=== PATIENT | female | born 1970 | race Caucasian/White ===

== ENCOUNTER → 2017-07-03 13:08 | Outpatient (CLI) | payer OTHER, MEDICAID, SELFPAY | PROVIDERS: PCP Family Medicine; Visit Provider Internal Medicine | DX: G47.33 Obstructive sleep apnea (adult) (pediatric) (principal); G47.10 Hypersomnia, unspecified; E66.9 Obesity, unspecified | CPT/HCPCS: 95806 ==

== ENCOUNTER → 2017-08-20 07:35 | Outpatient (CLI) | payer OTHER, MEDICAID, SELFPAY ==
[2017-08-20 13:39] LABS: Basophils % 0.3 % (0.1-2.0); Eosinophils # 0.2 K/mm3 (0.0-0.4); Hematocrit 40.4 % (37.0-47.0); Hemoglobin 13.2 g/dL (12.2-16.2); Lymphocytes % 32.1 K/mm3 (10-50); Mean Corpuscular HGB Conc 32.7 g/dL (31.8-35.4); Mean Corpuscular Hemoglobin 30.5 pg (27.0-31.2); Mean Corpuscular Volume 93.2 fl (81-99); Mean Platelet Volume 8.3 fl (7.4-10.4); Monocytes # 0.3 K/mm3 (0.1-1.0); Monocytes % 5.4 % (1.7-9.3); Neutrophils # 3.7 K/mm3 (1.8-7.8); Neutrophils % 59.1 % (37.0-80.0); Platelet Count 222 K/mm3 (142-424); Red Blood Count 4.34 M/mm3 (4.20-5.40); Red Cell Distribution Width 13.4 % (11.5-17.5); White Blood Count 6.3 K/mm3 (4.8-10.8)
[2017-08-20 14:23] LABS: Alanine Aminotransferase 36 U/L (12-78); Albumin Level 3.4 gm/dL (3.4-5.0); Alkaline Phosphatase 66 U/L (46-116); Anion Gap 11.1 mEq/L (5-15); Aspartate Amino Transferase 22 U/L (15-37); Bilirubin,Total 0.5 mg/dL (0.2-1.0); Blood Urea Nitrogen 12 mg/dL (7-18); Calcium 8.9 mg/dL (8.5-10.1); Carbon Dioxide 25 mmol/L (21.0-32.0); Chloride 106 mmol/L (98-107); Creatinine,Serum 0.96 mg/dL (0.55-1.02); Estimated Glomerular Filt Rate 62 ml/min (>60); Ferritin 94 ng/mL (8-388); GFR (African American) 75 ML/MIN (>60); Globulin 3.4 gm/dl (1.3-3.2); Glucose 107 mg/dL (74-106); Potassium 4.1 mmoL/L (3.5-5.1); Sodium 138 mmol/L (136-145); Thyroid Stimulating Hormone 2.11 uIU/ml (0.358-3.740); Total Protein,Serum 6.8 gm/dL (6.4-8.2)
[2017-08-22 14:46] LABS: Vitamin B12 315 pg/mL (232-1245)
== END ==
PROVIDERS: PCP Family Medicine; Visit Provider Specialist
DX: G47.33 Obstructive sleep apnea (adult) (pediatric) (principal)
CPT/HCPCS: 36415; 80053; 82607; 82728; 84443; 85025

== ENCOUNTER → 2017-11-04 20:00 | Outpatient (CLI) | payer OTHER, MEDICAID, SELFPAY | PROVIDERS: PCP Family Medicine; Visit Provider Specialist | DX: G47.33 Obstructive sleep apnea (adult) (pediatric) (principal); G47.30 Sleep apnea, unspecified; G47.10 Hypersomnia, unspecified; G45.9 Transient cerebral ischemic attack, unspecified; G47.61 Periodic limb movement disorder | CPT/HCPCS: 95810 ==

== ENCOUNTER → 2018-07-17 07:57 | Outpatient (CLI) | payer OTHER, SELFPAY ==
--- NOTE | 2018-07-17 08:02 | MM_ITS ---
MM Dig screening mamm BI w/CAD CAD Screening COMPARISON: Analog mammograms 07/15/2009 INDICATION: There is a history of breast cancer patient maternal grandmother and maternal great-grandmother patient complains of a palpable area right breast for several months TECHNIQUE: Standard CC and MLO images were obtained. R2 CAD reviewed. FINDINGS: The breasts are composed primarily of fat with minimal scattered fibroglandular densities throughout each breast. The marker was placed on the skin at the site of the palpable lump and there is no underlying abnormality appreciated. There are couple of benign-appearing calcifications in each breast. There is a mole marker left breast. There is no suspicious lesion and there are no suspicious microcalcifications. If a palpable lump persists possibly follow-up ultrasound should be considered. IMPRESSION: Fibrofatty parenchyma with no suspicious lesion seen. BI-RADS Category: 2 Benign Finding(s) RECOMMENDED FOLLOW-UP: 1YR - 1 YEAR FOLLOW-UP (A letter has been sent to the patient regarding results of the study.)
--- NOTE | 2018-07-17 08:02 | US_ITS ---
US breast RT complete INDICATION: Reported palpable abnormality in the 2:00 region of the right breast ORDERING PHYSICIAN: Jose Murphy MD PATIENT AGE: 47 years COMPARISON: None TECHNIQUE: Right breast ultrasound complete with axilla FINDINGS: General survey is performed of the right breast showing no sonographic abnormalities. Small nodes are present in the axilla IMPRESSION: Negative BI-RADS Category: 1 Negative Correlation with physical exam required if there is indeed a palpable abnormality should be managed on a clinical basis. Negative ultrasound does not exclude the possibility of malignancy. Complete evaluation suggested with mammography (A letter has been sent to the patient regarding results of the study.)
== END ==
PROVIDERS: PCP Family Medicine; Visit Provider Family Medicine
DX: Z12.31 Encounter for screening mammogram for malignant neoplasm of breast (principal)
CPT/HCPCS: 76641; 77067

== ENCOUNTER → 2018-08-11 09:57 | Outpatient (POV) | payer OTHER, SELFPAY | PROVIDERS: Visit Provider Specialist | DX: R20.2 Paresthesia of skin (principal) ==

== ENCOUNTER → 2018-12-08 08:49 | Outpatient (POV) | payer OTHER, MEDICAID, SELFPAY | PROVIDERS: Visit Provider Specialist | DX: R20.0 Anesthesia of skin (principal) | CPT/HCPCS: 95886; 95910 ==

== ENCOUNTER → 2019-02-10 12:18 | Outpatient (CLI) | payer OTHER, SELFPAY ==
--- NOTE | 2019-02-10 12:29 | CA_ITS ---
[facility] RADIOLOGICAL CONSULTATION Patient Name : Valerie Berger X-RAY # : [id number] Physician: EJ PALUMBO AGE: 48Y : 1970 00:00:00 ( F ) Exam : CA ECHO DOPPLER COMPLETE ACC # : [id number] Study Date : 02/10/2019 12:26:54 Patient Class : O FINAL REPORT CLINICAL DATA: FINDINGS: TRANSCRIBED REPORT EXAM: Comprehensive 2D, Doppler, and color-flow Echocardiogram Ht: 5 ft 3 in Wt: 262lbs BSA: 2.17 BP: 108/58 mmHg Indications: CP, smoker, fatigue, SOB, PASCUAL, Hyperlipidemia, HHD, AICD, hx of VT 2D Dimensions Aortic Root 2.70 cm F: 2.7 - 3.3 Left Atrium 3.80 cm F: 2.7 - 3.8 M-Mode Dimensions RVDd 1.37 cm (0.9-2.6) LVDd 4.31 cm (3.5-5.7) LVDs 3.20 cm (3.5-5.7) IVSd 1.14 cm (0.6-1.1) PWd 0.95 cm (0.6-1.1) EF (Teich) 50.90% FS 25.80% EDV (Teich) 83.50 mL ESV (Teich) 41.00 mL LV Diastology E/A Ratio 1.24 Mitral Valve MV A Velocity 70.00 (40-130 cm/s) Electronically signed by : IMPRESSION: Dictated by at Transcribed by at
[2019-02-10 14:09] LABS: Anion Gap 14.3 mEq/L (5-15); Blood Urea Nitrogen 16 mg/dL (7-18); Carbon Dioxide 28 mmol/L (21.0-32.0); Chloride 103 mmol/L (98-107); Creatinine,Serum 1.03 mg/dL (0.55-1.02); Estimated Glomerular Filt Rate 57 ml/min (>60); GFR (African American) 69 ML/MIN (>60); Glucose 96 mg/dL (74-106); Potassium 4.3 mmoL/L (3.5-5.1); Sodium 141 mmol/L (136-145)
== END ==
PROVIDERS: PCP Family Medicine; Visit Provider Internal Medicine Cardiovascular Disease
DX: R06.00 Dyspnea, unspecified (principal); I50.20 Unspecified systolic (congestive) heart failure; R42 Dizziness and giddiness; E78.5 Hyperlipidemia, unspecified; G25.81 Restless legs syndrome; I11.0 Hypertensive heart disease with heart failure; I20.9 Angina pectoris, unspecified; I42.9 Cardiomyopathy, unspecified; Z95.810 Presence of automatic (implantable) cardiac defibrillator; R20.0 Anesthesia of skin
CPT/HCPCS: 36415; 80048; 83880; 93306

== ENCOUNTER → 2021-12-13 09:46 | Outpatient (CLI) | payer BC, SELFPAY ==
--- NOTE | 2021-12-13 09:52 | MM_ITS ---
PROCEDURE INFORMATION: Exam: MG Bilateral Screening 3D Mammography Exam date and time: 12/13/2021 9:46 AM Age: 51 years old Clinical indication: Screening examination. Her maternal grandmother and great great grandmother had breast cancer. TECHNIQUE: Imaging protocol: Bilateral Screening tomosynthesis and 2D mammography including computer-aided detection (CAD) when performed. COMPARISON: 1. MG SCBI MM Dig screening mamm BI w/CAD 07/17/2018 8:41 AM 2. MG MM Digitiz Mammo Leadite Worker 07/15/2009 3:50 PM 3. BREASTRT US breast RT complete 07/17/2018 8:44 AM FINDINGS: MAMMOGRAPHY: Breast composition: The breasts are almost entirely fatty. Mass: No suspicious mass. Architectural distortion: None. Calcifications: No suspicious calcifications. Asymmetric density: None. Skin thickening: None. Axillary adenopathy: None. Other findings: Metallic pacemaker overlying the left axilla limits evaluation and accentuates the importance of clinical breast exam. IMPRESSION: No mammographic evidence of malignancy. Annual screening is recommended unless otherwise clinically indicated. ASSESSMENT: BI-RADS Category 1: Negative
== END ==
PROVIDERS: PCP Internal Medicine; Visit Provider Family Medicine
DX: Z12.31 Encounter for screening mammogram for malignant neoplasm of breast (principal)
CPT/HCPCS: 77063; 77067

== ENCOUNTER 2023-01-24 09:44 | Day surgery (SDC) | payer OTHER, SELFPAY ==
--- NOTE | 2023-01-24 | IR_ITS ---
APPROVED REPORT Patient Location: Outpatient [facility] Blind Mechanic: SAMMIE Finn RT (R) PROCEDURES Pocket Revision Removal of old cardiac resyncronization therapy device Implant of Permanent cardiac resyncronization therapy device INDICATION End of Battery Life Informed consent was obtained prior to the procedure. COMPLICATIONS None Estimated Blood Loss: Less than 10 ml TECHNIQUE 1% lidocaine with epinephrine used to anesthetize the left anterior aspect of the chest. Scalpel was used to make the initial cutaneous incision and then used to dissect down to the existing SLOT SHIFT SUPERVISOR-D generator. The generator was removed from the existing pocket. Digital manipulation was required along with intermittent usage of scalpel in order to revise the pocket. The leads were removed from the old generator. The new generator was screwed to the existing leads and secured into place. Electronic interrogation proved acceptable thresholds and voltage within the lead. Antibiotics were used to flush the pocket and the pacemaker was secured using 3-0 silk into the newly revised pocket. Monocryl was used to close the subcutaneous tissue and then stephan were placed on the cutaneous area in order to approximate the incision. Patient was transferred to the postop holding area in stable condition. INTERROGATION Explanted Generator Model Number: 3365/40q Explanted Generator Serial Number:[id number] Implanted Generator Model number: [id number] Implanted Generator Serial number: [id number] Atrial lead model number: 1688tc/52 Atrial lead serial number: [id number] P wave: >0.5 mv Impedence: n/a Threshold: 0.6V@0.5 ms Right Ventricular lead model number: [id number] Right Ventricular lead serial number: UNKNOWN R wave: 11.7 mv Impedence: 700 ohms Threshold: 0.5v@0.5,d Left Ventricular lead Model Number: 1458q/86 Left Ventricular Lead serial Number: [id number] R wave: N/A Impedence: 900 ohms Threshold: 1.5v @ 1.0ms Pacing Parameters: Mode: DDDR Base/Max Track:60 ppm / 130 ppm No diaphragmatic stimulation at 10 volts. IMPRESSION Successful Pocket Revision Successful Removal of old cardiac resyncronization therapy device Successful Implant of Permanent cardiac resyncronization therapy device PLAN 1. Post Op Wound Care Electronically signed by : John Henriquez MD 01/25/2023 09:34:00
[2023-01-24 07:45] VITALS: BMI 46.0
[2023-01-24 10:41] LABS: Basophils % 0.6 % (0.1-2.0); Eosinophils # 0.1 K/mm3 (0.0-0.4); Eosinophils % 1.7 % (0.1-12.0); Hematocrit 42.5 % (37.0-47.0); Hemoglobin 13.9 g/dL (12.2-16.2); Lymphocytes # 2.1 K/mm3 (0.7-4.5); Lymphocytes % 36.9 % (10-50); Mean Corpuscular HGB Conc 32.7 g/dL (31.8-35.4); Mean Corpuscular Volume 91.7 fl (81-99); Mean Platelet Volume 9.2 fl (7.4-10.4); Monocytes # 0.4 K/mm3 (0.1-1.0); Monocytes % 6.4 % (1.7-9.3); Neutrophils # 3.1 K/mm3 (1.8-7.8); Neutrophils % 54.4 % (37.0-80.0); Platelet Count 201 K/mm3 (142-424); Red Blood Count 4.63 M/mm3 (4.20-5.40); Red Cell Distribution Width 14.2 % (11.5-17.5); White Blood Count 5.7 K/mm3 (4.8-10.8)
[2023-01-24 10:51] LABS: Anion Gap 11.5 mEq/L (5-15); Blood Urea Nitrogen 9 mg/dl (7-17); Calcium 9.4 mg/dl (8.4-10.2); Carbon Dioxide 32 mmol/L (22.0-30.0); Chloride 103 mmol/L (98-107); Creatinine Clearance Estimated 53 mL/min (50-200); Estimated Glomerular Filt Rate 58 ml/min (>60); GFR (African American) 70 ML/MIN (>60); Glucose 121 mg/dl (74-100); Potassium 3.5 mmoL/L (3.5-5.1); Sodium 143 mmol/L (136-145)
[2023-01-24 14:45] VITALS: BP 116/96; PULSE 83; RESP 20; O2SAT 90
[2023-01-24 14:50] VITALS: BP 120/95; PULSE 75; RESP 16; O2SAT 90
[2023-01-24 15:00] VITALS: BP 147/98; PULSE 80; PULSE 89; RESP 20; O2SAT 94
[2023-01-24 15:03] VITALS: BP 147/98; PULSE 85; RESP 18; O2SAT 95
[2023-01-24 15:10] VITALS: BP 110/73; PULSE 85; RESP 20; O2SAT 94
[2023-01-24 15:32] VITALS: BP 117/65; PULSE 80; RESP 20; O2SAT 96
== END 2023-01-24 16:00 | disposition home or self-care (01) ==
PROVIDERS: PCP Family Medicine; Visit Provider Internal Medicine
DX: Z45.02 Encounter for adjustment and management of automatic implantable cardiac defibrillator (principal); Z79.899 Other long term (current) drug therapy; F17.210 Nicotine dependence, cigarettes, uncomplicated; I42.9 Cardiomyopathy, unspecified; E78.5 Hyperlipidemia, unspecified; I11.0 Hypertensive heart disease with heart failure; I50.22 Chronic systolic (congestive) heart failure; G25.81 Restless legs syndrome
CPT/HCPCS: 33264; 36415; 80048; 85025; 99152; C1882

== ENCOUNTER → 2023-02-06 09:03 | Outpatient (CLI) | payer OTHER, SELFPAY ==
--- NOTE | 2023-02-06 | CA_ITS ---
APPROVED REPORT EXAM: Comprehensive 2D, Doppler, and color-flow Echocardiogram Financial Sales Associate: Jamee Garay, RCS, RVS Ht: 5 ft 3 in Wt: 259lbs BSA: 2.16 BP: 146/81 mmHg Indications: s/p PACER, SOA, OBESITY, CP, HTN, HLD,Ex-smoker 2D Dimensions IVSd 0.93 cm LVEF (Visual) 70.40 % PWd 1.02 cm LA Volume 38.10 mL LVDd 4.67 cm LA Volume Index 17.955659 mL/m2 (M/F) 16-34 LVDs 2.81 cm Aortic Root 2.45 cm Left Atrium 2.68 cm LVOT 1.76 cm (M/F) 1.5-2.5 M-Mode Dimensions LA Diam 3.27 cm (1.9-4.0) LVDd 4.68 cm (3.5-5.7) Ao Diam 2.98 cm (2.0-3.7) LVDs 3.43 cm (3.5-5.7) EF (Teich) 52.10% EPSs 0.57 cm FS 26.70% EDV (Teich) 101.30 mL TAPSE 1.90 (<1.7) ESV (Teich) 48.50 mL LV Diastology E Decel Time 223.00 (160-240 msec) E/A Ratio 1.08 MED E' 6.20 (< 7 cm/sec) MED A' 7.80 cm/s E'/MED E' Ratio 11.84 (>14) LAT E' 6.50 (<10 cm/sec) LAT A' 5.00 cm/s E/LAT E' Ratio 11.29 (>14) Aortic Valve LVOT Max 96.00 (70-110 cm/s) LVOT VTI 20.65 cm AoV Peak Shashank. 153.00 (50-130 cm/s) AO Peak GR. 9.30 mmHg AO Mean GR. 4.70 (<5 mmHg) AO VTI 31.49 (18-25 cm) ANDREW (VTI) 1.60 (2.5-4.5 cm2) Mitral Valve MV A Velocity 68.00 (40-130 cm/s) E/A Ratio 1.08 MV Decel. Time 223.00 (160-240 ms) Pulmonary Valve PV Peak Velocity 78.00 (50-150 cm/s) Left Ventricle The left ventricle is normal size. The left ventricular systolic function is normal. The left ventricular ejection fraction is within the normal range. There is increased LV wall thickness. There is normal LV segmental wall motion. The left ventricular diastolic function is normal. LVEF is 55%. Right Ventricle The right ventricle is mildly dilated. The right ventricular systolic function is normal. Atria The left atrium size is normal. The right atrium size is normal. The interatrial septum is not well visualized. Aortic Valve The aortic valve is not well visualized, but grossly opens well. There is no aortic valvular stenosis. No aortic regurgitation is present. Mitral Valve The mitral valve is normal in structure. No evidence of mitral valve stenosis. Trace mitral regurgitation. Tricuspid Valve The tricuspid valve leaflets are thin and pliable. Trace tricuspid regurgitation. There is insufficient TR jet to estimate RVSP. Pulmonic Valve The pulmonary valve is not well visualized. Great Vessels The aortic root is normal in size. The ascending aorta is normal in size. The IVC is not well visualized. Pericardium There is no pericardial effusion. Other Information Study Quality: Technically Difficult Conclusion Technically difficult study due to poor accoustic windows. Grossly, normal biventricular systolic function. Mildly dilated RV. No significant valvular stenosis or regurgitation of the visualized valves. Electronically signed by : Dinora Oneal MD 02/09/2023 13:37:16
== END ==
PROVIDERS: PCP Family Medicine; Visit Provider Nurse Practitioner
DX: R06.02 Shortness of breath (principal)
CPT/HCPCS: 93306

== ENCOUNTER 2024-08-27 09:07 | Outpatient (CLI) | payer BC, SELFPAY ==
--- NOTE | 2024-08-27 09:11 | CA_ITS ---
APPROVED REPORT EXAM: Comprehensive 2D, Doppler, and color-flow Echocardiogram Educational Technology Specialist: Kalpana Oliveira RVT Ht: 5 ft 3 in Wt: 268lbs BSA: 2.19 BP: 121/68 mmHg Indications: DYSPENA,AICD,HFpEF,HTN.HLD,FATIGUE TDS-PT BODY HABITUS 2D Dimensions IVSd 1.55 cm F: 0.6-1.0 LVEF (Visual) 51.50 % PWd 0.80 cm F: 0.6 - 1.0 LA Volume 22.80 mL LVDd 2.70 cm F: 3.9 - 5.3 LA Volume Index 10.41 mL/m2 (M/F) 16-34 LVDs 2.02 cm F: 2.2 - 3.5 EF AP4 53.20 % Aortic Root 2.03 cm F: 2.7 - 3.3 GL Strain -5.3 % Left Atrium 3.16 cm F: 2.7 - 3.8 RVID Base (AP4) 2.44 cm (M/F) 2.5-4.1 LVOT 2.42 cm (M/F) 1.5-2.5 M-Mode Dimensions LVDd 2.70 cm (3.5-5.7) Ao Diam 2.57 cm (2.0-3.7) LVDs 2.02 cm (3.5-5.7) IVSd 1.55 cm (0.6-1.1) PWd 0.80 cm (0.6-1.1) FS 25.20% LV Diastology E Decel Time 225 (160-240 msec) E/A Ratio 1.0 MED E' 5.2 (>= 7 cm/sec) E'/MED E' Ratio 12.12 (<= 14) LAT E' 4.3 (>= 10 cm/sec) E/LAT E' Ratio 14.65 (<= 14) Aortic Valve LVOT Max 73.0 (70-110 cm/s) ANDREW Index 1.02 cm2/m2 LVOT VTI 11.75 cm AoV Peak Shashank. 131.0 (50-130 cm/s) AO Peak GR. 6.40 mmHg AO Mean GR. 3.50 (<5 mmHg) AO VTI 24.1 (18-25 cm) ANDREW (VTI) 2.24 (2.5-4.5 cm2) Mitral Valve MV E Max Shashank. 63.0 (40-130 cm/s) MV A Velocity 60.0 (40-130 cm/s) E/A Ratio 1.05 MV Decel. Time 225 (160-240 ms) Left Ventricle The left ventricle is normal size. The left ventricular systolic function is normal. The left ventricular ejection fraction is within the normal range. There is increased overall thickness. Diastolic function is indeterminate. There is normal LV segmental wall motion. LVEF is 55%. Right Ventricle In the right ventricle is not well-visualized. Atria The left atrium size is normal. The right atrium is not well-visualized. Aortic Valve Aortic valve is mildly thickened. There is no aortic valvular stenosis. No aortic regurgitation is present. Mitral Valve The mitral valve is normal in structure. No evidence of mitral valve stenosis. Trace mitral regurgitation. Tricuspid Valve The tricuspid valve is not well-visualized. Pulmonic Valve The pulmonic valve is not well-visualized. Great Vessels The aortic root is normal in size. The IVC is not well-visualized. Pericardium There is no pericardial effusion. Other Information Study Quality: Technically Difficult Conclusion Technically difficult study due to poor acoustic windows. Normal LV systolic function. RV not well-visualized. No significant valvular stenosis or regurgitation in the AV or MV. The TV and PV are not well-visualized. Electronically signed by : Dinora Oneal MD 09/05/2024 00:10:17
== END 2024-08-27 23:59 | disposition home or self-care (01) ==
LOC: RT 09:08
PROVIDERS: PCP Family Medicine; Visit Provider Nurse Practitioner
DX: I42.9 Cardiomyopathy, unspecified (principal); I11.0 Hypertensive heart disease with heart failure; I50.22 Chronic systolic (congestive) heart failure
CPT/HCPCS: 93306

== ENCOUNTER 2024-12-15 08:54 | Outpatient (CLI) | payer BC, SELFPAY ==
--- OUTSIDE RECORDS SUMMARY | 2023-12-11 05:30 | XMS_ITS ---
Author Organization [facility] Address [address] [facility] [id number] Care Team Providers Care Tobacco Acreage Measurer Name Role Phone Katherine García Primary Care Provider [phone] GARCÍA MURPHY Unavailable Unavailable Allergies Allergen (clinical [...] Interpretation:324 Performing Lab: Notes/Report: Test performed by [facility], [employer] [address] [place] [address] , [address], [place] [address] Zaid Olvera MD, Family Practice Nurse Practitioner CLIA: [id number] Vitamin B12 411 996-0880 pg/mL P-Lipid Panel Reviewed date:12/12/2023 08:26:50 AM Interpretation: Normal Performing Lab: Notes/Report: Test performed by [facility], [address] [place], [place] [address] Zaid Olvera MD, Family Practice Nurse Practitioner CLIA: [id number] Cholesterol 150 <200 mg/dL Triglycerides 136 <150 [...] Normal Performing Lab: Notes/Report: Test performed by [facility] [employer], [employer] [address] [facility] , [address], [place] [address] Zaid Olvera MD, Family Practice Nurse Practitioner CLIA: [id number] Vitamin D 25-Hydroxy 58.9 30.0-100.0 ng/mL Interpretation [...] Date Status Vitamin D (Ergocalciferol) 1.25 MG (49017 UT) TAKE 1 CAPSULE BY MOUTH 1 [...] 12/11/2023 Encounters Encounter Location Date Provider Diagnosis [facility] [address] [place], [place] [id number] 12/11/2023 García [place] Essential hypertensi on I10 ; Hypertriglyceridemia E78.1 [...] 06/11/2025 10:15:00 AM, [address] [facility], [address] , [place], [place], [id number], Progress Notes * XIMENA FERNANDEZDOB:[birth year] (54 yo F)Acc No.[id number]:12/11/2023 Progress Notes Patient: XIMENA SCOTT Provider: Jluis Murphy M.D. :1970 A ge:53 Y S ex:Female Date:12/11/2023 Address:[address] [place] [address], [place], [id number] Subjective: * Chief Complaints: * 1 . [...] stic Procedure: S leep Study , Rash- [facility] 01/09-, [facility] ER-reaction to Excedrin- [facility] ER 02/06/2009, [facility] [place] 05/07/2014, ICD 05/12/2015. * Family History: F [...] , Taking Vitamin D (Ergocalciferol) 1.25 MG (24484 UT) Capsule TAKE 1 CAPSULE BY MOUTH [...] AM)?324* Value Reference Range V itamin B12 364 794-4602 - pg/mL * Kassidy Olivarez 12/12/2023 8:26: [...] * Procedure Codes: 8 2950 GLUCOSE TEST, 31141 GLYCATED HEMOGLOBIN TEST, Modifiers: QW * Follow Up: 6 Months * Images: Billing Information: * Visit Code: 11127 Office Visit, Est Pt., Level 4. * Procedure Codes: 17063 GLUCOSE TEST. 02366 GLYCATED HEMOGLOBIN TEST. Modifiers: QW * Electronic signature of Shasta Murphy MD on 12/15/2024 at 08:58 AM EDT Sign off status: Pending * Provider: Jluis Murphy M.D. Date: 12/11/2023 Generated for Omar oliver/Jelena/eTransmitting on: 0 12/15/2024 08:58 AM EDT History and Physical Notes * HPI (History [...]
--- OUTSIDE RECORDS SUMMARY | 2024-06-10 05:45 | XMS_ITS ---
Author Organization [facility] Address [address] [phone] Care Team Providers Care Conveyor Attendant Name Role Phone Katherine García Primary Care [...] Interpretation:281 Performing Lab: Notes/Report: Test performed by [facility], [employer] [address] [place] [address] , [address], [place] [address] Zaid Olvera MD, Transportation Sales Consultant CLIA: [id number] Vitamin B12 812 320-3476 pg/mL P-Comprehensive Metabolic Pa francia (CMP) Reviewed date:06/12/2024 09:28:26 AM Interpretation:gluc 101, Cr 1.13, gfr 57 Performing Lab: Notes/Report: Test performed by [employer] [employer] [address] [place] [address] , [address], [place] [address] Zaid Olvera MD, Transportation Sales Consultant CLIA: [id number] Sodium 141 135-145 mmol/L Potassium 4.2 3.5-5.3 [...] Normal Performing Lab: Notes/Report: Test performed by [employer] [address] [place] [address] , [address], [place] [address] Zaid Olvera MD, Transportation Sales Consultant CLIA: [id number] Cholesterol 159 <200 mg/dL Triglycerides 126 <150 [...] Interpretation:32.9 Performing Lab: Notes/Report: Test performed by [facility], [address] , [place], [place] [address] Zaid Olvera MD, Transportation Sales Consultant CLIA: [id number] Vitamin D 25-Hydroxy 32.9 30.0-100.0 ng/mL Interpretation [...] day Active Vitamin D (Ergocalciferol) 1.25 MG (16841 UT) TAKE 1 CAPSULE BY MOUTH 1 [...] 06/10/2024 Encounters Encounter Location Date Provider Diagnosis [facility] [facility] [address] [phone] 06/10/2024 García Murphy Essential hypertensi on I10 [...] [address], [address], [place], [place], [id number], Progress Notes * XIMENA BERGERDOB:[birth year] (54 yo F)Acc No.[id number]:06/10/2024 Progress Notes Patient: XIMENA SCOTT Provider: Jluis Murphy M.D. :1970 A ge:53 Y S ex:Female Date:06/10/2024 Address:[address] [place] [address], [place], [id number] Subjective: * Chief Complaints: * 1 . [...] stic Procedure: S leep Study , Rash- [facility] 01/09-, [facility] ER-reaction to Excedrin- [facility] ER 02/06/2009[facility], ICD 05/12/2015. * Family History: F [...] , Taking Vitamin D (Ergocalciferol) 1.25 MG (85966 UT) Capsule TAKE 1 CAPSULE BY MOUTH [...] AM)?281* Value Reference Range V itamin B12 968 728-4391 - pg/mL * Kassidy Olivarez 06/12/2024 9:28: 15 AM >See phone encounter 7.?Depression with anxiety? Refill Escitalopram Oxalate Tablet, 10 MG, 1 tab(s), orally, once a day, 90 days, 90, Refills 1; Refill ARIPiprazole Tablet, 5 MG, 1 tab(s), orally, once a day, 90 days, 90, Refills 1.? * Procedure Codes: 8 2950 GLUCOSE TEST, 413[address] GLYCATED HEMOGLOBIN TEST, Modifiers: QW , 3074F SYST BP LT 130 MM HG, 3078F DIAST BP < 80 MM HG, 3044F HG A1C LEVEL LT 7.0% * Follow Up: 6 Months * Images: Billing Information: * Visit Code: 66156 Office Visit, Est Pt., Level 4. * Procedure Codes: 32356 GLUCOSE TEST. 59641 GLYCATED HEMOGLOBIN TEST. Modifiers: QW 3074F SYST BP LT 130 MM HG. 3078F DIAST BP < 80 MM HG. 3044F HG A1C LEVEL LT 7.0%. * Electronic signature of Shasta Murphy MD on 12/15/2024 at 08:57 AM EDT Sign off status: Pending * Provider: Jluis Murphy M.D. Date: 0 06/10/2024 Generated for Printi ng/Faxing/eTransmitting on: 0 12/15/2024 08:57 AM EDT History and Physical Notes * HPI (History of Present Illness) Category Sub-Category Detail Notes Category Not es [facility]ocrinology [facility]. [...]
--- OUTSIDE RECORDS SUMMARY | 2024-12-09 05:45 | XMS_ITS ---
Author Organization [facility] Address [address] [facility] [address] [phone] Care Team Providers Care Filler Shredding Machine Loader Name Role Phone García Murphy Primary Care Provider GARCÍA MURPHY Unavailable Unavailable [...] Active Results Component Value Reference Range Notes P-Vitamin B12 (Not yet revie wed by provider) Interpretation:363 Performing Lab: Notes/Report: Test performed by [facility] [employer] [place] , [address], [place] [address] Zaid Olvera MD, Institutional Cook CLIA: [id number] Vitamin B12 326 458-4411 pg/mL P-Basic Metabolic Panel (BMP ) (Not yet reviewed by provider) Interpretation:gluc 113 Performing Lab: Notes/Report: Test performed by [facility] [employer] [address], [address], [place] [address] Zaid Olvera MD, Institutional Cook CLIA: [id number] Sodium 143 135-145 mmol/L Potassium 4.0 3.5-5.3 mmol/L Chloride 104 97-108 mmol/L CO2 26 20-32 mmol/L Glucose 113 65-99 mg/dL BUN 10 6-20 mg/dL Creatinine 0.94 0.50-1.00 mg/dL Calcium 9.1 8.6-10.4 mg/dL eGFR by Creatinine 71 >59 mL/min/1.73m2 P-Vitamin D 25-Hydroxy (Not yet reviewed by provider) Interpretation:34.5 Performing Lab: Notes/Report: Test performed by [employer], [address] , [address], [place] [address] Zaid Olvera MD, Institutional Cook CLIA: [id number] Vitamin D 25-Hydroxy 34.5 30.0-100.0 ng/mL Interpretation of Vitamin D 25 OH: < 20 ng/mL - Deficiency 20 - 29 ng/mL - Insufficiency 30 - 100 ng/mL - Sufficiency > 100 ng/mL - Super-therapeutic- toxicity may occur above this level. Clinical correlation required. Intrinsic Factor Blocking An tibody (Not yet reviewed by provider) Interpretation: Normal Performing Lab: Notes/Report: Intrinsic Factor Blocking Antibody Negative Negative Performed By: [employer] [address] [place] [address] Institutional Cook: Jamar Ortiz MD, PhD CLIA Number: [id number] Glucose (In-House) Reviewed date:12/09/2024 11:00:09 AM Interpretation: Performing Lab: Notes/Report: blood glucose 132 74 - 106 mg/dL Glycohemoglobin A1c (in hous e) Reviewed date:12/09/2024 10:59:59 AM Interpretation: Performing Lab: Notes/Report: glycohemoglobin 5.8% 5 - 6.5 % REASON FOR VISIT 6 month checkup Medications [...] B-12 1000 MCG 1 tablet Orally On a day 06/16/2024 Active Furosemide 40 MG [...] Problem Status W/U Status Risk Notes Problem IFG (impaired fasting glucose) (R73.01) Active confirmed Vital Signs Blood pressure systolic 112 mm Hg 12/10/19 Blood pressure diastolic 70 mm Hg 025 Heart Rate 64 /min 12/09/2024 Height 63 in 12/09/2024 Weight 272.8 lbs 12/09/2024 BMI 48.32 kg/m2 12/09/2024 Encounters Encounter Location Date Provider Diagnosis [facility] [address] [facility] [address] [place], [place] [id number] 12/09/2024 García [place] Essential hypertensi on I10 ; Vitamin D [...] test Pending Test Test Name Order Date P-Vitamin B12 12/09/2024 P-Basic Metabolic Panel (BMP) 12/09/2024 P-Vitamin D 25-Hydroxy 12/09/2024 P-Intrinsic Factor Blocking Antibody Intrinsic Factor Blocking Antibody 12/09 Next Appt Details Follow Up: 6 Months, Reason: Provider Name:García Ling ry, 06/11/2025 10:15:00 AM, [address], [address], [place], [place], [phone], Procedure Notes * Category Sub-Category Detail Notes Irrigation Of Ears Procedure Ear prepped b y soaking with H2O2, Flushed with peroxide and warm water, Ears irrigated free of only some of the wax. Patient wanted to stop due to discomfort Progress Notes * IVONE BERGERANNALISADOB:[birth year] (54 yo F)Acc No.[id number]:12/09/2024 Progress Notes Patient: XIMENA SCOTT Provider: Jluis Murphy M.D. :1970 A ge:54 Y S ex:Female Date:12/09/2024 Address:[address] [place] [address], [id number] Subjective: * Chief Complaints: * 1 . [...] stic Procedure: S leep Study , Rash- [facility] 01/09-, [facility] ER-reaction to Excedrin- [facility] 02/06/2009, [facility] [place] 05/07/2014, ICD 05/12/2015. * Family History: F [...] Temp: 97.7, BP: 112/70, HR: 64, Nurse: kk, Ht: 63, BMI:48.32. * Examination: C ardiology: HEENT: b oth ear canals obstructed by dried cerumen. H eart sounds: R RR, normal S1, S2. L ungs: c lear, no rales or wheezes. E xtremities:?no leg edema. P sychology: General Appearance: N AD. G rooming : a dequate.?Eye contact : raj orvictor manuel. M ood : carlene lecandy. Assessment: * Assessment: 1. E ssential hypertension [...] GFR by Creatinine 71 >59 - mL/min/1.73m2 2.?Vitamin D deficiency? Continue Vitamin D3 Capsule, 50 MCG (2000 UT), 2 capsules, Orally, Once a day.?LAB: P-Vitamin D 25-Hydroxy (Collection Date & Time - 12/09/2024 09:05 AM)? 34.5* Value Reference Range V itamin D 25-Hydroxy 34.5 30.0-100.0 - ng/mL 3.?Vitamin B12 deficiency? Continue Vitamin B-12 Tablet, 1000 MCG, 1 tablet, Orally, Once a day.?LAB: P-Intrinsic Factor Blocking Antibody ?LAB: P-Vitamin B12 (Collection Date & Time - 12/09/2024 09:05 AM)?363* Value Reference Range V itamin B12 743 846-0140 - pg/mL 4.?IFG (impaired fasting glucose)?LAB: Glucose (In-House) (Collection Date & Time - 12/09/2024)* Value Reference Range b lood glucose 132 74 - 106 mg/dL * Katharina Tripathiira 12/09/2024 10:56: 53 AM EDT > Provider reviewed results while patient in office. ?LAB: Glycohemoglobin A1c (in house) (Collection Date & Time - 12/09/2024)* Value Reference Range g lycohemoglobin 5.8% 5 - 6.5 % * Katharina Tripathiira 12/09/2024 10:57: 22 AM EDT > Provider [...] Blocking Antibody Negative Negati ve - * [facility], IT support 12/11/2024 03:15:06 : This order was created by the Interface. * Procedure Codes: 6 9210 EAR IRRIGATION, [address] GLUCOSE TEST, 05383 GLYCATED HEMOGLOBIN TEST, Modifiers: QW * Follow Up: 6 Months * Images: Billing Information: * Visit Code: 68951 Office Visit, Est Pt., Level 4. Modifiers: 25 * Procedure Codes: 77872 EAR IRRIGATION. 59040 GLUCOSE TEST. 56725 GLYCATED HEMOGLOBIN TEST. Modifiers: QW * Electronic signature of Shasta Murphy MD on 12/15/2024 at 08:57 AM EDT Sign off status: Pending * Provider: Jluis Murphy M.D. Date: 0 12/09/2024 Generated for Omar oliver/Jelena/Rubina on: 0 12/15/2024 08:57 AM EDT History [...]
--- NOTE | 2024-12-15 08:56 | XR_ITS ---
FINAL REPORT CLINICAL HISTORY: sob x 2 months FINDINGS: PA and lateral views of the chest are obtained. There is no prior exam for comparison. Left AICD is present. The cardiac and mediastinal silhouettes are within normal limits. The lungs are clear. There is no pleural effusion, pneumothorax, or acute osseous abnormality. IMPRESSION: No radiographic evidence of acute cardiac or pulmonary disease. Reviewed, Interpreted and Dictated by Abbey Herron MD Transcribed by Gabbie Vance Authenticated and [facility]
--- OUTSIDE RECORDS SUMMARY | 2024-12-15 08:58 | XMS_ITS | Encounter Summary ---
Author Organization [place] [address] Care Team Providers Care Scheme Technician Name Role Phone Alexys Arguelles MD Primary Care Provider [phone] Encounter Details Date Type Department Care Team (Late st Contact Info) Description 05/07/2014 Orders Only SEP Arrhythmia Ctr Edg [address] [facility] [address] [place] [address] Branden Vora MD [address] [place], [place] [id number] Social History Tobacco Use Types Packs/Day Years Used Date Smoking Tobacco: Every Day Cigarettes 1 19.6 Started: 05/06/2005 Smokeless Tobacco: Never Alcohol Use Standard Drinks/Week Comments No 0 (1 standard drink = 0.6 oz pur e alcohol) Comments No Sex and Gender Information Value Date Recorded Sex Assigned at Not on file Legal Sex Female 4:42 PM EST Gender Identity Not on file Sexual Orientation Not on file documented as of this encounter Functional Status * Cognitive and Functional Status Question Answer Date of Assessment Author Is the person deaf or does he/she have serious difficulty hearing? No 05/08/2014 11:53 AM Grace Mccallum RN Is the person blind or does he/she have serious difficulty seeing even when wearing glasses? No 05/08/2014 11:53 AM Grace Mccallum RN Does this person have sercatau s difficulty walking or climbing stairs? No 05/08/2014 11:53 AM Grace Mccallum RN Does this person have difficulty dressing or bathing? No 05/08/2014 11:53 AM Aixa Andrews, BLUE documented as of this encounter Mental Status * Cognitive and Functional Status Question Answer Entry Date Author Because of a physical, menta l or emotional condition, does this person have difficulty doing errands alone such as visiting a doctor's office or shopping? No 05/08/2014 11:53 AM Grace Mccallum, RN Because of a physical, menta l or emotional condition, does this person have serious difficulty concentrating, remembering or making decisions? No 05/08/2014 11:53 AM Grace Mccallum, RN documented in this encounter Plan of Treatment Not on file documented as of this encounter Procedures Procedure Name Priority Date/Time Associated Diagnosis Comments PACEART REPORT Routine 05/07/2014 10:27 PM EST documented in this encounter Results * PACEART REPORT (05/07/2014 10:27 PM EST) 05/07/2014 10:2 7 PM EST Narrative [facility] - 05/07/2014 5:28 PM EST Implant us Branden Vora MD [facility] CARDIAC CATH ORDERAB LES Final Result Performing Organization Address City/State/[facility] Co de Phone Number [facility] [address] [place] [address] documented in this encounter Visit Diagnoses Not on filedocumented in this encounter Care Teams Scheme Technician Relationship Specialty Start Date End Date Alexys Arguelles MD [facility] [address] [place] [address] PCP - General Family Medicine 05/07/14 documented as of this encounter
--- OUTSIDE RECORDS SUMMARY | 2024-12-15 08:58 | XMS_ITS | Clinical Summary ---
Author Organization [facility] Address [address] [place] [address] Phone Care Team Providers Care Clerk General Name Role Phone Alexys Arguelles MD Primary Care Provider [phone] Allergies Active Allergy Reactions Criticality Noted Date Comments Aspirin Anaphylaxis High 05/06/2014 Erythromycin Rash Medium 05/06/2014 Excedrin Ib Anaphylaxis High 05/06/2014 Lisinopril Anaphylaxis,Swelling High 05/06/2014 Macrolide Antibiotics Rash Medium 05/06/2014 Peanut Anaphylaxis High 05/06/2014 Pomegranate Hives,Swelling,Rash Medium 05/06/2014 Medications losartan (COZAAR) 50 mg Oral Tablet Take 1 Tab by mouth daily. 30 Tab 2 05/08/2014 Active fUROsemide (LASIX) 40 mg Oral Tablet Take 1 Tab by mouth daily. 30 Tab 2 05/08/2014 Active carvedilol (COREG) 25 mg Oral TabletIndications: Automatic implantable cardiac defibrillator in situ,Fitting and adjustment of automatic implantable cardiac defibrillator,Familia estive heart failure, NYHA class II, unspecified failure chronicity, unspecified type (HCC) Take 50 mg by mouth 2 times daily. Active spironolactone (ALDACTONE) 25 mg Oral TabletIndications: Automatic implantable cardiac defibrillator in situ,Fitting and adjustment of automatic implantable cardiac defibrillator,Familia estive heart failure, NYHA class II, unspecified failure chronicity, unspecified type (HCC) Take 12.5 mg by mouth 2 times daily. Active warfarin (COUMADIN) 5 mg Oral TabletIndications: Automatic implantable cardiac defibrillator in situ,Fitting and adjustment of automatic implantable cardiac defibrillator,Familia estive heart failure, NYHA class II, unspecified failure chronicity, unspecified type (HCC) Take 5 mg by mouth every evening. Active Active Problems Problem Noted Date Diagnosed Date Syncope 05/07/2014 LV dysfunction 05/07/2014 LBBB (left bundle branch block) 05/07/2014 NICM (nonischemic cardiomyopathy) 05/07/2014 Cardiomyopathy Congestive heart failure, NYHA class II Biventricular ICD (implantab le cardioverter-defibrillator) in place Overview (05/10/2014): [employer] Biventricular ICD implanted by Dr. Katerin Vora on 05/07/2014 Nonsustained ventricular tachycardia CHF NYHA class II Surgical History Surgery Date Site/Laterality Comments HYSTERECTOMY TONSILLECTOMY SECTION BLADDER SURGERY CARDIAC DEFIBRILLATOR PLACEMENT 05/07/2014 SJM BiV ICD implanted by Dr. Katerin Vora Medical History Medical History Date Comments Hypertension Heart murmur Cardiomyopathy (HCC) Biventricular ICD (implantab le cardioverter-defibrillator) in place [employer] Biventricular ICD implanted by Dr. Katerin Vora on 05/07/2014 Nonsustained ventricular tac hycardia (HCC) LBBB (left bundle branch block) NICM (nonischemic cardiomyopathy) (HCC) CHF NYHA class II (HCC) Family History Medical History Relation Name Comments High Blood Pressure Father High Cholesterol Father High Blood Pressure Mother Thyroid Disease Mother Relation Name Status Comments Father Mother Social History Tobacco Use Types Packs/Day Years Used Date Smoking Tobacco: Every Day Cigarettes 1 19.6 Started: 05/06/2005 Smokeless Tobacco: Never Tobacco Cessation:Ready to Q uit: No; Counseling Given: Yes Alcohol Use Standard Drinks/Week Comments No 0 (1 standard drink = 0.6 oz pur e alcohol) Comments No Sex and Gender Information Value Date Recorded Sex Assigned at Not on file Legal Sex Female 4:42 PM EST Gender Identity Not on file Sexual Orientation Not on file Obstetrics History Comments 3 Children Last Filed Vital Signs Vital Sign Reading Time Taken Comments Blood Pressure 110/72 08/25/2014 1:59 PM EDT lef t arm Pulse 67 08/25/2014 1:59 PM EDT Temperature 36.7 C (98 F) 05/08/2014 11:30 AM EST Respiratory Rate 18 05/08/2014 11:30 AM EST Oxygen Saturation 96% 08/25/2014 1:59 PM EDT Inhaled Oxygen Concentration - - Weight 97.1 kg (214 lb) 08/25/2014 1:59 PM EDT Height 160 cm (5' 3 ) 08/25/2014 1:59 PM EDT Body Mass Index 37.91 08/25/2014 1:59 PM EDT Plan of Treatment Health Maintenance Due Date Last Done Comments Annual Wellness Exam 09/09/1971 DTaP/TDaP/Td (1 - Tdap) 09/09/1987 Hepatitis B Vaccine (1 of 3 - 19+ 3-dose series) 09/09/1987 Pneumococcal Vaccine 50+ (1 of 2 - PCV) 09/09/1987 Cervical Cancer Screening 1989 Pap Smear 1989 HPV/Pap Cotest 1998 Breast Cancer Screening 2008 Cologuard 2013 Colon Cancer Screening 2013 Colonoscopy 2013 FIT 2013 Sigmoidoscopy 2013 Virtual Colonography 2013 Zoster (1 of 2) 2018 COVID-19 Vaccine (1 - 2023-2 5 season) 2023 Influenza Vaccine (#1) 2024 Meningococcal B Vaccine Aged Out No l onger eligible based on patient's age to complete this topic Medical Devices Implanted Type Area Wedding Transportation Driver Device Identifier Shelf Expiration Date Model / Serial / Lot Lead Tachyarrhythmia Implantable Sprint Quattro Secure 62cm - [id number] Implanted:Qty: 1 on 05/07/2014 by Branden Vora MD at [facility]:PACING SYS [id number] / [id number] / Lead Quad L V W/S Curve Fix 86cm - [id number] Implanted:Qty: 1 on 05/07/2014 by Branden Vora MD at [facility] [employer]:CARDIAC RHYM MGMT [id number]/86 / [id number] / Lead Tendril Sdx Bipolar Ventricular Screw-In Steroid Elutin - [id number] Implanted:Qty: 1 on 05/07/2014 by Branden Vora MD at [facility]:CARDIAC RHYM MGMT [id number]/52 / [id number] / Defibrillator Quadra Zenaidaura Sizing Sponger-D - [id number] Implanted:Qty: 1 on 05/07/2014 by Branden Vora MD at [facility] [employer]:CARDIAC RHYM MGMT [id number] / [id number] / Insurance ANTHEM PPO ANTHEM PPO Advance Directives For more information, please contact: [phone] * Full Code (Latest Code Status on File) Date Activated Date Inactivated Comments 05/06/2014 9:29 PM 05/08/2014 5:00 PM Care Teams Clerk General Relationship Specialty Start Date End Date Alexys Arguelles MD [facility] [address] [place] [address] PCP - General Family Medicine 05/07/14
--- OUTSIDE RECORDS SUMMARY | 2024-12-15 08:58 | XMS_ITS | Encounter Summary ---
Author Organization [place] [address] Care Team Providers Care Digital Imager Name Role Phone Alexys Arguelles MD Primary Care Provider [phone] Encounter Details Date Type Department Care Team (Late st Contact Info) Description 05/07/2014 Orders Only SEP Arrhythmia Ctr Edg [address] [facility] [address] [place] [address] Branden Vora MD [address] [place], [place] [id number] Social History Tobacco Use Types Packs/Day Years [...] Procedure Name Priority Date/Time Associated Diagnosis Comments ELECTROPHYSIOLOGY OR IMPLANT PROCEDURE LOG Routine 05/07/2014 1:58 PM EST documented in this encounter Results * ELECTROPHYSIOLOGY OR IMPLANT PROCEDURE LOG (05/07/2014 1:58 PM EST) 05/07/2014 1:58 PM EST Branden Vora MD CARDIAC CATH ORDERABLES Edited Result - Final [facility] [address] [place] [address] documented in this encounter Visit Diagnoses Not on filedocumented in this encounter Care Teams Digital Imager Relationship Specialty Start Date End Date Alexys Arguelles MD [facility] [place] [address] [place] [address] PCP - General Family Medicine 05/07/14 documented as of this encounter
--- OUTSIDE RECORDS SUMMARY | 2024-12-15 08:58 | XMS_ITS | Patient Health Record ---
Author Organization [facility] Address [address] [place] [id number] Care Team Providers Care Shorthand Reporter Name Role Phone Jose Murphy Primary Care Provider [phone] JOSE MURPHY Unavailable Unavailable Allergies Allergen (clinical drug [...] Interpretation:281 Performing Lab: Notes/Report: Test performed by [facility] , [address], [place] [address] Zaid Olvera MD, Small Craft Operator CLIA: [id number] Vitamin B12 305 324-0859 pg/mL P-Comprehensive Metabolic Pa francia (CMP) Reviewed date:06/12/2024 09:28:26 AM Interpretation:gluc 101, Cr 1.13, gfr 57 Performing Lab: Notes/Report: Test performed by [facility] [address] [place] [address] , [address], [place] [address] Zaid Olvera MD, Small Craft Operator CLIA: [id number] Sodium 141 135-145 mmol/L Potassium 4.2 3.5-5.3 [...] Normal Performing Lab: Notes/Report: Test performed by [facility] [address] [place] [address] , [address], [place] [address] Zaid Olvera MD, Small Craft Operator CLIA: [id number] Cholesterol 159 <200 mg/dL Triglycerides 126 <150 [...] Interpretation:32.9 Performing Lab: Notes/Report: Test performed by [facility], [address] , [facility], [place] [address] Zaid Olvera MD, Small Craft Operator CLIA: [id number] Vitamin D 25-Hydroxy 32.9 30.0-100.0 ng/mL Interpretation of Vitamin D 25 OH: < 20 ng/mL - Deficiency 20 - 29 ng/mL - Insufficiency 30 - 100 ng/mL - Sufficiency > 100 ng/mL - Super-therapeutic- toxicity may occur above this level. Clinical correlation required. P-Vitamin B12 (Not yet revie wed by provider) Interpretation:363 Performing Lab: Notes/Report: Test performed by [facility] [address] [place] [address] , [place] [address] Zaid Olvera MD, Small Craft Operator CLIA: [id number] Vitamin B12 982 405-3248 pg/mL P-Basic Metabolic Panel (BMP ) (Not yet reviewed by provider) Interpretation:gluc 113 Performing Lab: Notes/Report: Test performed by [facility] [address] [place] [address] , [place] [address] Zaid Olvera MD, Small Craft Operator CLIA: [id number] Sodium 143 135-145 mmol/L Potassium 4.0 3.5-5.3 mmol/L Chloride 104 97-108 mmol/L CO2 26 20-32 mmol/L Glucose 113 65-99 mg/dL BUN 10 6-20 mg/dL Creatinine 0.94 0.50-1.00 mg/dL Calcium 9.1 8.6-10.4 mg/dL eGFR by Creatinine 71 >59 mL/min/1.73m2 P-Vitamin D 25-Hydroxy (Not yet reviewed by provider) Interpretation:34.5 Performing Lab: Notes/Report: Test performed by [facility] [address] [place] [address] , [place] [address] Zaid Olvera MD, Small Craft Operator CLIA: [id number] Vitamin D 25-Hydroxy 34.5 30.0-100.0 ng/mL Interpretation [...] Factor Blocking Antibody Negative Negative Performed By: [facility] [address] [place] [address] Small Craft Operator: Jamar Ortiz MD, PhD CLIA Number: [id number] Glucose (In-House) Reviewed date:12/09/2024 11:00:09 AM Interpretation: Performing Lab: Notes/Report: blood glucose 132 74 - 106 mg/dL Glycohemoglobin A1c (in hous e) Reviewed date:12/09/2024 10:59:59 AM Interpretation: Performing Lab: Notes/Report: glycohemoglobin 5.8% 5 - 6.5 % Medications Medication SIG (Take, Route, Frequency, Duration) [...] Orally On ce a day 06/16/2024 Active Carvedilol 25 MG 2 tab(s) orally 2 ti mes a day Active Furosemide 40 MG 1 tab(s) orally once a day Active Losartan Potassium 100 MG 1 tab(s) orall y once a day Active ARIPiprazole 5 MG 1 tab(s) orally once a day; Duration: 90 days Active Escitalopram Oxalate 10 MG TAKE 1 TABLET BY MOUTH DAILY; Duration: 90 Active Immunizations Vaccine Route Administration Date Status Comme nts COVID 19 Moderna Unknown 11/18/2020 Administered COVID 19 Moderna Unknown 12/19/2020 Administered ppd ID Intradermal 10/31/2011 Administered tuberculin (ppd) ID Intradermal 05/11/2005 Administered tuberculin (ppd) ID Intradermal 10/12/2005 Administered tuberculin (ppd) ID Intradermal 11/21/2006 Administered tuberculin (ppd) TD Transdermal 11/19/2007 Administered tuberculin (ppd) TD Transdermal 11/18/2009 Administered Problems Problem Type SNOMED Code ICD Code Onset Dates Problem Status W/U Status Risk Notes Problem Vitamin D deficiency (28384602) Vitamin D deficiency (E55.9) Active confirmed Problem Vitamin B12 deficiency (919519978) Vitamin B12 deficiency (E53.8) Active confirmed Problem Essential hypertension (23018415) Essential hypertension (I10) Active confirmed Problem Morbid obesity (205682977) Morbid obesity (E66.01) Active confirmed Problem Hypertriglyceridemia (973031331) Hypertriglyceridemia (E78.1) Active confirmed Problem Mixed anxiety and depressive disorder (109534338) Depression with anxiety (F41.8) Active confirmed Problem Sciatica (00047636) Lumbago with sciatica, right side (M54.41) Active confirmed Problem Mixed hyperlipidemia (622167317) Mixed hyperlipidemia (E78.2) Active confirmed Problem Chronic pain (80907463) Other chronic pain (G89.29) Active confirmed Problem Depressive disorder (21339090) Depressive disorder (F32.9) Active confirmed Problem Cardiomyopathy (05716496) Cardiomyopathy (I42.9) Active confirmed Problem Hypersomnia (13899461) Hypersomnia (G47.10) Active confirmed Problem Tobacco user (619880075) Cigarette nicotine dependence without complication (F17.210) Active confirmed Problem Automatic implantabl e cardiac defibrillator in situ (669672764) Presence of automatic implantable cardioverter-defibril lator (Z95.810) Active confirmed Problem Impaired fasting glycaemia (926017298) IFG (impaired fasting glucose) (R73.01) Active confirmed Problem Drug allergy (790803175) Multiple drug allergies (Z88.9) Active confirmed Problem Angina, class II (14977023) Angina, class II (I20.9) Active confirmed Problem Systolic dysfunction (782031134) Systolic dysfunction (I51.9) Active confirmed Vital Signs Heart Rate 64 /min 12/09/2024 Blood pressure diastolic 70 mm Hg 12/09/2024 Height 63 in 12/09/2024 Blood pressure systolic 112 mm Hg 12/09/2024 Weight 272.8 lbs 12/09/2024 BMI 48.32 kg/m2 12/09/2024 Encounters Encounter Location Date Provider Diagnosis [facility] [address] [facility] [address] [place], [place] [id number] 06/10/2024 Jose [place] Essential hypertensi on I10 ; Mixed hyperlipidemia E78.2 ; Hypertriglyceridemia E78.1 ; IFG (impaired fasting glucose) R73.01 ; Vitamin D deficiency E55.9 ; Vitamin B12 deficiency E53.8 and Depression with anxiety F41.8 [facility] [address] [facility] [address] [place] [id number] 12/09/2024 Jose [place] Essential hypertensi on I10 ; Vitamin D deficiency E55.9 ; Vitamin B12 deficiency E53.8 ; IFG (impaired fasting glucose) R73.01 and Excessive wax in both ears H61.23 [facility] [address] [facility] [address] [place] [id number] 06/12/2024 Jose Murphy Assessments Encounter Date Diagnosis (ICD Code) Assessment Notes Treatment Notes Treatment Clinical Notes Section Notes 06/10/2024 Essential hypertensi on (ICD-10 - I10) 06/10/2024 Mixed hyperlipidemia (ICD-10 - E78.2) 12/09/2024 Vitamin D deficiency (ICD-10 - E55.9) 12/09/2024 Essential hypertensi on (ICD-10 - I10) 12/09/2024 Vitamin B12 deficien cy (ICD-10 - E53.8) 06/10/2024 Hypertriglyceridemia (ICD-10 - E78.1) 06/10/2024 IFG (impaired fastin g glucose) (ICD-10 - R73.01) 12/09/2024 IFG (impaired fastin g glucose) (ICD-10 - R73.01) 12/09/2024 Excessive wax in bot h ears (ICD-10 - H61.23) 06/10/2024 Vitamin D deficiency (ICD-10 - E55.9) 06/10/2024 Vitamin B12 deficien cy (ICD-10 - E53.8) 06/10/2024 Depression with anxi ety (ICD-10 - F41.8) 12/09/2024 Other Patient to complete Cologuard test Plan Of Treatment Pending Test Test Name Order Date Cologuard 12/05/2021 P-Vitamin B12 12/09/2024 P-Basic Metabolic Panel (BMP) 12/09/2024 P-Vitamin D 25-Hydroxy 12/09/2024 P-Intrinsic Factor Blocking Antibody Intrinsic Factor Blocking Antibody 12/09 Next Appt Details Provider Name:Jose gonzales, 06/11/2025 10:15:00 AM, [address] [facility] [address] [facility], [address], [place], [id number], Insurance Providers Payer Name Payer Address Payer Phone Subscriber Number Group Number Insured Name Patient Relationship to Insured Coverage Start Date Coverage End Date [employer] [address] [place] [address] [id number] XIMENA BERGER Self - patient is the insured Medications Administered Medication Instructions Date of Administration Dosage Notes B-12 2014 1 mL depo medrol 80 mg 01/12/2009 2 mL Medical (General) History Medical History History ICD Code Dilated cardiomyopathy, Left heart cath Dr. Henriquez , EF 30% Congestive Heart Failure, systolic, EF 5 0% (July 2016) Hypertension Pacer/ICD 05/07/14 Dr. Vora restless leg syndrome depression anxiety Allergic Rhinitis Asthma 25 pack year smoking history as of 2018 Surgical History Surgery Date(Month/Year) Tonsillectomy Hysterectomy, total vaginal D&C bladder tuck ICD 05/07/2014 Sleep Study, Dr. Rosen 11/04/2017 Mammogram with Ultrasound - cyst on R Hospitalization History Reason Date(Month/Year) ICD 05/12/[facility] [place] 05/07/2014 [facility] ER-reaction to Excedrin- [facility] ER 01/20 Rash- [facility] 01/09- Sleep Study
== END 2024-12-15 23:59 | disposition home or self-care (01) ==
LOC: RAD 08:55
PROVIDERS: PCP Family Medicine; Visit Provider Physician Assistant
DX: R06.02 Shortness of breath (principal)
CPT/HCPCS: 71046

== ENCOUNTER 2025-01-06 09:55 | Outpatient (CLI) | payer BC, SELFPAY ==
--- OUTSIDE RECORDS SUMMARY | 2023-12-11 05:30 | XMS_ITS ---
Author Organization [facility] Address [address] [facility] [address] [id number] Care Team Providers Care Plant Science Professor Name Role Phone Katherine García Primary Care Provider [phone] GARCÍA MURPHY Unavailable Unavailable Allergies Allergen (clinical [...] Interpretation:324 Performing Lab: Notes/Report: Test performed by [facility], [facility] [address] [place] [address] , [address], [place] [address] Zaid Olvera MD, Senior Quality Methods Specialist CLIA: [id number] Vitamin B12 059 619-4196 pg/mL P-Lipid Panel Reviewed date:12/12/2023 08:26:50 AM Interpretation: Normal Performing Lab: Notes/Report: Test performed by [facility], [address] [place], [place] [address] Zaid Olvera MD, Senior Quality Methods Specialist CLIA: [id number] Cholesterol 150 <200 mg/dL Triglycerides 136 <150 [...] Normal Performing Lab: Notes/Report: Test performed by [facility], [facility] [address] [facility] , [address], [place] [address] Zaid Olvera MD, Senior Quality Methods Specialist CLIA: [id number] Vitamin D 25-Hydroxy 58.9 30.0-100.0 ng/mL Interpretation [...] Date Status Vitamin D (Ergocalciferol) 1.25 MG (66136 UT) TAKE 1 CAPSULE BY MOUTH 1 [...] 12/11/2023 Encounters Encounter Location Date Provider Diagnosis [facility] [address] [place], [place] [id number] 12/11/2023 García [place] Essential hypertensi on I10 ; Hypertriglyceridemia E78.1 [...] 06/11/2025 10:15:00 AM, [address] [facility], [address] , [place], [place], [id number], Progress Notes * XIMENA FERNANDEZDOB:[birth year] (54 yo F)Acc No.[id number]:12/11/2023 Progress Notes Patient: XIMENA SCOTT Provider: Jluis Murphy M.D. :1970 A ge:53 Y S ex:Female Date:12/11/2023 Address:[address] [place] [address], [place], [id number] Subjective: * Chief Complaints: * 1 . [...] stic Procedure: S leep Study , Rash- [facility] 01/09-, [facility] ER-reaction to Excedrin- [facility] ER 02/06/2009, [facility] [place] 05/07/2014, ICD 05/12/2015. * Family History: F [...] , Taking Vitamin D (Ergocalciferol) 1.25 MG (93749 UT) Capsule TAKE 1 CAPSULE BY MOUTH [...] AM)?324* Value Reference Range V itamin B12 873 992-2430 - pg/mL * Kassidy Olivarez 12/12/2023 8:26: [...] * Procedure Codes: 8 2950 GLUCOSE TEST, [address] GLYCATED HEMOGLOBIN TEST, Modifiers: QW * Follow Up: 6 Months * Images: Billing Information: * Visit Code: 50518 Office Visit, Est Pt., Level 4. * Procedure Codes: 55521 GLUCOSE TEST. 16594 GLYCATED HEMOGLOBIN TEST. Modifiers: QW * Electronic signature of Shasta Murphy MD on 01/06/2025 at 09:59 AM EDT Sign off status: Pending * Provider: Jluis Murphy M.D. Date: 12/11/2023 Generated for Omar oliver/Jelena/eTransmitting on: 0 01/06/2025 09:59 AM EDT History and Physical Notes * [...]
--- OUTSIDE RECORDS SUMMARY | 2024-06-10 05:45 | XMS_ITS ---
Author Organization [facility] Address [address] [phone] Care Team Providers Care Aggregate Conveyor Operator Name Role Phone Katherine García Primary Care [...] Interpretation:281 Performing Lab: Notes/Report: Test performed by [employer] [facility], RECESS. [facility] , [address], [place] [address] Zaid Olvera MD, Work And Family Life Consultant CLIA: [id number] Vitamin B12 281 429-9192 pg/mL P-Comprehensive Metabolic Pa francia (CMP) Reviewed date:06/12/2024 09:28:26 AM Interpretation:gluc 101, Cr 1.13, gfr 57 Performing Lab: Notes/Report: Test performed by [facility] [address] [place] [address] , [address], [place] [address] Zaid Olvera MD, Work And Family Life Consultant CLIA: [id number] Sodium 141 135-145 mmol/L Potassium 4.2 3.5-5.3 [...] Normal Performing Lab: Notes/Report: Test performed by [facility] [address] [place] [address] , [address], [place] [address] Zaid Olvera MD, Work And Family Life Consultant CLIA: [id number] Cholesterol 159 <200 mg/dL Triglycerides 126 <150 [...] Interpretation:32.9 Performing Lab: Notes/Report: Test performed by [employer], [address] , [place], [place] [address] Zaid Olvera MD, Work And Family Life Consultant CLIA: [id number] Vitamin D 25-Hydroxy 32.9 30.0-100.0 ng/mL Interpretation [...] day Active Vitamin D (Ergocalciferol) 1.25 MG (58172 UT) TAKE 1 CAPSULE BY MOUTH 1 [...] 06/10/2024 Encounters Encounter Location Date Provider Diagnosis [facility] [facility] [address] [phone] 06/10/2024 García Murphy Essential hypertensi on I10 [...] [address], [address], [place], [place], [id number], Progress Notes * XIMENA BERGERDOB:[birth year] (54 yo F)Acc No.[id number]:06/10/2024 Progress Notes Patient: XIMENA SCOTT Provider: Jluis Murphy M.D. :1970 A ge:53 Y S ex:Female Date:06/10/2024 Address:[address] [place] [address], [place], [id number] Subjective: * Chief Complaints: * 1 . [...] stic Procedure: S leep Study , Rash- [facility] 01/09-, [facility] ER-reaction to Excedrin- [facility] ER 02/06/2009[facility], ICD 05/12/2015. * Family History: [...] , Taking Vitamin D (Ergocalciferol) 1.25 MG (78302 UT) Capsule TAKE 1 CAPSULE BY MOUTH [...] AM)?281* Value Reference Range V itamin B12 676 384-2820 - pg/mL * Kassidy Olivarez 06/12/2024 9:28: 15 AM >See phone encounter 7.?Depression with anxiety? Refill Escitalopram Oxalate Tablet, 10 MG, 1 tab(s), orally, once a day, 90 days, 90, Refills 1; Refill ARIPiprazole Tablet, 5 MG, 1 tab(s), orally, once a day, 90 days, 90, Refills 1.? * Procedure Codes: 8 2950 GLUCOSE TEST, [address]803 GLYCATED HEMOGLOBIN TEST, Modifiers: QW , 3074F SYST BP LT 130 MM HG, 3078F DIAST BP < 80 MM HG, 3044F HG A1C LEVEL LT 7.0% * Follow Up: 6 Months * Images: Billing Information: * Visit Code: 06246 Office Visit, Est Pt., Level 4. * Procedure Codes: 58292 GLUCOSE TEST. 71065 GLYCATED HEMOGLOBIN TEST. Modifiers: QW 3074F SYST BP LT 130 MM HG. 3078F DIAST BP < 80 MM HG. 3044F HG A1C LEVEL LT 7.0%. * Electronic signature of Shasta Murphy MD on 01/06/2025 at 09:58 AM EDT Sign off status: Pending * Provider: Jluis Murphy M.D. Date: 0 06/10/2024 Generated for Printi ng/Faxing/eTransmitting on: 0 01/06/2025 09:58 AM EDT History and Physical Notes * HPI (History of Present Illness) Category Sub-Category Detail Notes Category Not es Endocrinology [facility]. [...]
--- OUTSIDE RECORDS SUMMARY | 2024-12-09 05:45 | XMS_ITS ---
Author Organization [facility] Address [address] [facility] [address] [phone] Care Team Providers Care Cnc Cutting Operator Name Role Phone Katherine García Primary [...] date:12/15/2024 11:04:08 AM Interpretation:363 Performing Lab: Notes/Report: Test performed by [employer] [facility] , [address], [place] [address] Zaid Olvera MD, Machine Oiler CLIA: [id number] Vitamin B12 226 223-7697 pg/mL P-Basic Metabolic Panel (BMP ) Reviewed date:12/15/2024 11:04:08 AM Interpretation:gluc 113 Performing Lab: Notes/Report: Test performed by [employer] [address] , [place] [address] Zaid Olvera MD, Machine Oiler CLIA: [id number] Sodium 143 135-145 mmol/L Potassium 4.0 3.5-5.3 mmol/L Chloride 104 97-108 mmol/L CO2 26 20-32 mmol/L Glucose 113 65-99 mg/dL BUN 10 6-20 mg/dL Creatinine 0.94 0.50-1.00 mg/dL Calcium 9.1 8.6-10.4 mg/dL eGFR by Creatinine 71 >59 mL/min/1.73m2 P-Vitamin D 25-Hydroxy Reviewed date:12/15/2024 11:04:08 AM Interpretation:34.5 Performing Lab: Notes/Report: Test performed by [employer] [address] [place] [address] [address], [place] [address] Zaid Olvera MD, Machine Oiler CLIA: [id number] Vitamin D 25-Hydroxy 34.5 30.0-100.0 ng/mL Interpretation [...] Factor Blocking Antibody Negative Negative Performed By: [employer] [address] [place] [id number] Machine Oiler: Jamar Ortiz MD, PhD CLIA Number: [id number] REASON FOR VISIT 6 month checkup Medications [...] Status Risk Notes Problem Impaired fasting glycaemia (538962955) IFG (impaired fasting glucose) (R73.01) Active confirmed Vital Signs Blood pressure systolic 112 mm Hg 12/10/19 Blood pressure diastolic 70 mm Hg 025 Heart Rate 64 /min 12/09/2024 Height 63 in 12/09/2024 Weight 272.8 lbs 12/09/2024 BMI 48.32 kg/m2 12/09/2024 Encounters Encounter Location Date [facility] [address] [facility] [address] [place] [phone] 12/09/2024 García Murphy Essential hypertensi on I10 [...] [address], [address], [place], [place], [id number], Procedure Notes * Category Sub-Category Detail Notes Irrigation Of Ears Procedure Ear prepped b y soaking with H2O2, Flushed with peroxide and warm water, Ears irrigated free of only some of the wax. Patient wanted to stop due to discomfort Progress Notes * XIMENA FERNANDEZDOB:[birth year] (54 yo F)Acc No.[id number]:12/09/2024 Progress Notes Patient: XIMENA SCOTT Provider: Jluis Murphy M.D. :1970 A ge:54 Y S ex:Female Date:12/09/2024 Address:[address] [place] [address], [place], [id number] Subjective: * Chief Complaints: * 1 . [...] stic Procedure: S leep Study , Rash- [facility] 01/09-, [facility] ER-reaction to Excedrin- [facility], ICD 05/12/2015. * Family History: [...] AM)?363* Value Reference Range V itamin B12 186 953-3638 - pg/mL * Cindy Levi 12/15/2024 11: [...] Blocking Antibody Negative Negati ve - * [facility], support 12/11/2024 03:15:06 : This order was created by the Interface. Cindy Levi 12/15/2024 11:04:02 AM EDT > See phone encounter * Procedure Codes: 6 9210 EAR IRRIGATION, [address] GLUCOSE TEST, 06124 GLYCATED HEMOGLOBIN TEST, Modifiers: QW , 3044F HG A1C LEVEL LT 7.0%, 1036F TOBACCO NON-USER, 3074F SYST BP LT 130 MM HG, 3078F DIAST BP < 80 MM HG * Follow Up: 6 Months * Images: Billing Information: * Visit Code: 66563 Office Visit, Est Pt., Level 4. Modifiers: 25 * Procedure Codes: 52049 EAR IRRIGATION. 91383 GLUCOSE TEST. 05394 GLYCATED HEMOGLOBIN TEST. Modifiers: QW 3044F HG A1C LEVEL LT 7.0%. 1036F TOBACCO NON-USER. 3074F SYST BP LT 130 MM HG. 3078F DIAST BP < 80 MM HG. * Electronic signature of Shasta Murphy MD on 01/06/2025 at 09:58 AM EDT Sign off status: Pending * Provider: Jluis Murphy M.D. Date: 0 12/09/2024 Generated for Omar oliver/Jelena/Bibiitting on: 0 01/06/2025 09:58 AM EDT History [...]
--- OUTSIDE RECORDS SUMMARY | 2024-12-22 05:04 | XMS_ITS ---
Author Organization [facility] Address [address] [facility] [address] [facility] [address] [place] [id number] Care Team Providers Care Commercial Sheet Metal Foreman Name Role Phone García Murphy Primary Care Provider GARCÍA MURPHY Unavailable Unavailable REASON FOR VISIT due bassem,col,LDCT Encounters Encounter Location Date Provider Diagnosis [facility] [address] [facility] [address] [facility] [address] [place] [id number] 12/22/2024 García Murphy Breast cancer screening Z12.31 and Encounter for screening for lung cancer Z12.2 Assessments Encounter Date Diagnosis (ICD Code) Assessment Notes Treatment Notes Treatment Clinical Notes Section Notes 12/22/2024 Breast cancer screening (ICD-10 - Z12.31) 12/22/2024 Encounter for screening for lung cancer (ICD-10 - Z12.2) Plan Of Treatment Pending Test Test Name Order Date Mammogram 12/22/2024 CT Scan : Chest, low dose 12/22/2024 Next Appt Details Provider Name:García Ling ry, 06/11/2025 10:15:00 AM, [address], [address], [place], [id number], Progress Notes * XIMENA BERGERDOB:[birth year] (54 yo F)Acc No.[id number]:12/22/2024 Patient: XIMENA SCOTT :1970 A ge:54 Y S ex:Female Address:[address] [place] [address] [place], [place] [address] Subjective: * Chief Complaints: * d ue bassem,col,LDCT * Medical History: * Surgical History: * Hospitalization/Major Diagno stic Procedure: * Medications: Objective: * Vitals: * Physical Examination: Assessment: * Assessment: 1. B reast cancer screening - Z12.31 (Primary) 2 . E ncounter for screening for lung cancer - Z12.2 Plan: * Treatment: 2.?Encounter for screening for lung cancer?Imaging: CT Scan : Chest, low dose* Nereida Sanchez 12/23/2024 02:21 :43 PM EDT >sent to [facility] for referral to [facility] * Procedure Codes: * true * Date: Generated for Omar oliver/Jelena/Rubina on: 0 01/06/2025 09:59 AM EDT
--- NOTE | 2025-01-06 09:58 | MM_ITS ---
PROCEDURE INFORMATION: Exam: MG Bilateral Screening 3D Mammography Exam date and time: 01/06/2025 10:05 AM Age: 54 years old Clinical indication: Screening examination TECHNIQUE: Imaging protocol: Bilateral Screening tomosynthesis and 2D mammography including computer-aided detection (CAD) when performed. COMPARISON: 1. MG MM DIG SCREENING MAMM BI W/CAD 12/13/2021 9:46 AM 2. MG SCBI MM Dig screening mamm BI w/CAD 07/17/2018 8:41 AM FINDINGS: MAMMOGRAPHY: Breast composition: The breasts are almost entirely fatty. Mass: No suspicious masses. Architectural distortion: None. Calcifications: No suspicious calcifications. Asymmetric density: None. Skin thickening: None. Axillary adenopathy: None. IMPRESSION: No mammographic evidence of malignancy. Annual screening is recommended unless otherwise clinically indicated. ASSESSMENT: BI-RADS Category 1: Negative.
--- OUTSIDE RECORDS SUMMARY | 2025-01-06 09:58 | XMS_ITS | Clinical Summary ---
Author Organization [facility] Address [address] [place] [address] Phone Care Team Providers Care Decontamination Technician Name Role Phone Alexys Arguelles MD Primary Care Provider +1 -[phone] Allergies Active Allergy Reactions Criticality Noted Date [...] Date Smoking Tobacco: Every Day Cigarettes 1 19.7 Started: 05/06/2005 Smokeless Tobacco: Never Tobacco Cessation:Ready [...] COVID-19 Vaccine (1 - 2023-2 5 season) 2024 Influenza Vaccine (#1) 2024 Meningococcal B Vaccine Aged Out No l onger eligible based on patient's age to complete this topic Medical Devices Implanted Type Area Outreach Librarian Device Identifier Shelf Expiration Date Model / Serial / Lot Lead Tachyarrhythmia Implantable Sprint Quattro Secure 62cm - [id number] Implanted:Qty: 1 on 05/07/2014 by Branden Vora MD at [facility] [employer] [employer]:PACING SYS 6935M-62 / [id number] / Lead Quad L V W/S Curve Fix 86cm - [id number] Implanted:Qty: 1 on 05/07/2014 by Branden Vora MD at [employer]:CARDIAC RHYM MGMT 1458Q/86 / [id number] / Lead Tendril Sdx Bipolar Ventricular Screw-In Steroid Elutin - [id number] Implanted:Qty: 1 on 05/07/2014 by Branden Vora MD at [facility] [employer]:CARDIAC RHYM MGMT 1688TC/52 / [id number] / Defibrillator Quadra Zenaidaura Arc Welding Machine Operator-D - [id number] Implanted:Qty: 1 on 05/07/2014 by Branden Vora MD at [facility] DRY PLASTERER [employer]:CARDIAC RHYM MGMT [id number] / [id number] / Insurance ANTHEM PPO ANTHEM PPO Advance Directives For more information, please contact: [phone] * Full Code (Latest Code Status on File) Date Activated Date Inactivated Comments 05/06/2014 9:29 PM 05/08/2014 5:00 PM Care Teams Decontamination Technician Relationship Specialty Start Date End Date Alexys Arguelles MD [facility] [address] [place] [address] PCP - General Family Medicine 05/07/14
--- OUTSIDE RECORDS SUMMARY | 2025-01-06 09:59 | XMS_ITS | Encounter Summary ---
Author Organization [place] [address] Care Team Providers Care Title Abstractor Name Role Phone Alexys Arguelles MD Primary Care Provider +1 [phone] Encounter Details Date Type Department Care Team (Late st Contact Info) Description 05/07/2014 Orders Only SEP Arrhythmia Ctr Edg [address] [facility] [address] [place] [address] Branden Vora MD [address] [place], [place] [id number] Social History Tobacco Use Types Packs/Day Years Used Date Smoking Tobacco: Every Day Cigarettes 1 19.7 Started: 05/06/2005 Smokeless Tobacco: Never Alcohol Use [...] EST) 05/07/2014 10:2 7 PM EST Narrative [facility] - 05/07/2014 5:28 PM EST Implant us Branden Vora MD [facility] CARDIAC CATH ORDERAB LES Final Result Performing Organization Address City/State/[facility] Co de Phone Number [facility] [address] [place] [address] documented in this encounter Visit Diagnoses Not on filedocumented in this encounter Care Teams Title Abstractor Relationship Specialty Start Date End Date Alexys Arguelles MD [facility] [address] [place] [address] PCP - General Family Medicine 05/07/14 documented as of this encounter
--- OUTSIDE RECORDS SUMMARY | 2025-01-06 09:59 | XMS_ITS | Patient Health Record ---
Author Organization [facility] Address [address] [place] [id number] Care Team Providers Care Debt Recovery Officer Name Role Phone Jose Murphy Primary Care Provider [phone] JOSE MURPHY Unavailable Unavailable Allergies Allergen (clinical [...] Interpretation:281 Performing Lab: Notes/Report: Test performed by [facility] , [address], [place] [address] Zaid Olvera MD, Dairy Technician CLIA: [id number] Vitamin B12 299 478-8974 pg/mL P-Comprehensive Metabolic Pa francia (CMP) Reviewed date:06/12/2024 09:28:26 AM Interpretation:gluc 101, Cr 1.13, gfr 57 Performing Lab: Notes/Report: Test performed by [facility] [address] [place] [address] , [address], [place] [address] Zaid Olvera MD, Dairy Technician CLIA: [id number] Sodium 141 135-145 mmol/L Potassium 4.2 3.5-5.3 [...] Normal Performing Lab: Notes/Report: Test performed by [facility] [address] [place] [address] , [address], [place] [address] Zaid Olvera MD, Dairy Technician CLIA: [id number] Cholesterol 159 <200 mg/dL Triglycerides 126 <150 [...] Interpretation:32.9 Performing Lab: Notes/Report: Test performed by [facility], [address] , [facility], [place] [address] Zaid Olvera MD, Dairy Technician CLIA: [id number] Vitamin D 25-Hydroxy 32.9 30.0-100.0 ng/mL Interpretation of Vitamin D 25 OH: < 20 ng/mL - Deficiency 20 - 29 ng/mL - Insufficiency 30 - 100 ng/mL - Sufficiency > 100 ng/mL - Super-therapeutic- toxicity may occur above this level. Clinical correlation required. Glucose (In-House) Reviewed date:12/09/2024 11:00:09 AM Interpretation: Performing Lab: Notes/Report: blood glucose 132 74 - 106 mg/dL Glycohemoglobin A1c (in hous e) Reviewed date:12/09/2024 10:59:59 AM Interpretation: Performing Lab: Notes/Report: glycohemoglobin 5.8% 5 - 6.5 % P-Vitamin B12 Reviewed date:12/15/2024 11:04:08 AM Interpretation:363 Performing Lab: Notes/Report: Test performed by [facility] [address] [place] [address] , [address], [place] [address] Zaid Olvera MD, Dairy Technician CLIA: [id number] Vitamin B12 091 172-9224 pg/mL P-Basic Metabolic Panel (BMP ) Reviewed date:12/15/2024 11:04:08 AM Interpretation:gluc 113 Performing Lab: Notes/Report: Test performed by [facility] [address] [place] [address] , [place] [address] Zaid Olvera MD, Dairy Technician CLIA: [id number] Sodium 143 135-145 mmol/L Potassium 4.0 3.5-5.3 mmol/L Chloride 104 97-108 mmol/L CO2 26 20-32 mmol/L Glucose 113 65-99 mg/dL BUN 10 6-20 mg/dL Creatinine 0.94 0.50-1.00 mg/dL Calcium 9.1 8.6-10.4 mg/dL eGFR by Creatinine 71 >59 mL/min/1.73m2 P-Vitamin D 25-Hydroxy Reviewed date:12/15/2024 11:04:08 AM Interpretation:34.5 Performing Lab: Notes/Report: Test performed by [facility] [address] [place] [address] [address], [place] [address] Zaid Olvera MD, Dairy Technician CLIA: [id number] Vitamin D 25-Hydroxy 34.5 30.0-100.0 ng/mL Interpretation [...] Factor Blocking Antibody Negative Negative Performed By: [facility] [address] [place] [address] Dairy Technician: Jamar Ortiz MD, PhD CLIA Number: [id number] Medications Medication SIG (Take, Route, Frequency, Duration) Notes Start Date End Date Status Vitamin D3 50 MCG (1999) 2 capsules O rally Once a day 06/16/2024 Active Spironolactone 25 MG 1/2 tab(s) orally 2 times a day Active Atorvastatin Calcium 10 MG 1 tab(s) oral ly once a day 09/16/2019 Active Vitamin B-12 1000 MCG 1 tablet Orally On a day 06/16/2024 Active Carvedilol 25 MG [...] Vaccine Route Administration Date Status Comme nts tuberculin (ppd) ID Intradermal 05/11/2005 Administered tuberculin (ppd) ID Intradermal 10/12/2005 Administered tuberculin (ppd) ID Intradermal 11/21/2006 Administered tuberculin (ppd) TD Transdermal 11/19/2007 Administered tuberculin (ppd) TD Transdermal 11/18/2009 Administered ppd ID Intradermal 10/31/2011 Administered COVID 19 Moderna Unknown 11/18/2020 Administered COVID 19 Moderna Unknown 12/19/2020 Administered Problems Problem Type SNOMED Code ICD Code Onset Dates Problem Status W/U Status Risk Notes Problem Vitamin D deficiency (05404780) Vitamin D deficiency (E55.9) Active confirmed Problem Vitamin B12 deficiency (448012299) Vitamin B12 deficiency (E53.8) Active confirmed Problem Essential hypertension (45764206) Essential hypertension (I10) Active confirmed Problem Morbid obesity (373646902) Morbid obesity (E66.01) Active confirmed Problem Hypertriglyceridemia (124993169) Hypertriglyceridemia (E78.1) Active confirmed Problem Mixed anxiety and depressive disorder (362400759) Depression with anxiety (F41.8) Active confirmed Problem Sciatica (99036343) Lumbago with sciatica, right side (M54.41) Active confirmed Problem Mixed hyperlipidemia (237716119) Mixed hyperlipidemia (E78.2) Active confirmed Problem Chronic pain (20772334) Other chronic pain (G89.29) Active confirmed Problem Depressive disorder (99650092) Depressive disorder (F32.9) Active confirmed Problem Cardiomyopathy (16225300) Cardiomyopathy (I42.9) Active confirmed Problem Hypersomnia (75965926) Hypersomnia (G47.10) Active confirmed Problem Tobacco user (396007212) Cigarette nicotine dependence without complication (F17.210) Active confirmed Problem Automatic implantabl e cardiac defibrillator in situ (621624443) Presence of automatic implantable cardioverter-defibril lator (Z95.810) Active confirmed Problem Impaired fasting glycaemia (392748565) IFG (impaired fasting glucose) (R73.01) Active confirmed Problem Drug allergy (570845900) Multiple drug allergies (Z88.9) Active confirmed Problem Angina, class II (67799266) Angina, class II (I20.9) Active confirmed Problem Systolic dysfunction (810326008) Systolic dysfunction (I51.9) Active confirmed Vital Signs Heart Rate 64 /min 12/09/2024 Blood pressure diastolic 70 mm Hg 12/09/2024 Height 63 in 12/09/2024 Blood pressure systolic 112 mm Hg 12/09/2024 Weight 272.8 lbs 12/09/2024 BMI 48.32 kg/m2 12/09/2024 Encounters Encounter Location Date Provider Diagnosis [facility] [address] [place] [id number] 06/10/2024 [place] Essential hypertensi on I10 ; Mixed hyperlipidemia E78.2 ; Hypertriglyceridemia E78.1 ; IFG (impaired fasting glucose) R73.01 ; Vitamin D deficiency E55.9 ; Vitamin B12 deficiency E53.8 and Depression with anxiety F41.8 [facility] [address] [place], [place] [id number] 12/09/2024 Jose [place] Essential hypertensi on I10 ; Vitamin D deficiency E55.9 ; Vitamin B12 deficiency E53.8 ; IFG (impaired fasting glucose) R73.01 and Excessive wax in both ears H61.23 [facility] [address] [place], [place] [id number] 06/12/2024 [place] [facility] [address] [place], [place] [id number] 12/15/2024 [place] [facility] [address] [place], [place] [id number] 12/22/2024 [place] Breast cancer screen ing Z12.31 and Encounter for screening for lung cancer Z12.2 Assessments Encounter Date Diagnosis (ICD Code) Assessment Notes Treatment Notes Treatment Clinical Notes Section Notes 06/10/2024 Essential hypertensi on (ICD-10 - I10) 06/10/2024 Mixed hyperlipidemia (ICD-10 - E78.2) 12/09/2024 Vitamin D deficiency (ICD-10 - E55.9) 12/09/2024 Essential hypertensi on (ICD-10 - I10) 12/22/2024 Encounter for screen ing for lung cancer (ICD-10 - Z12.2) 12/22/2024 Breast cancer screen ing (ICD-10 - Z12.31) 12/09/2024 Vitamin B12 deficien cy (ICD-10 - [...] CT Scan : Chest, low dose 12/22/2024 Cologuard 12/05/2021 P-Intrinsic Factor Blocking Antibody Next Appt Details Provider Name:Jose Ling ry, 06/11/2025 10:15:00 AM, [address], [address], [place], [id number], Insurance Providers Payer Name Payer Address Payer Phone Subscriber Number Group Number Insured Name Patient Relationship to Insured Coverage Start Date Coverage End Date [employer]M [employer] [address] [place] [address] [id number] XIMENA DON Self - patient is the insured Medications [...] R Hospitalization History Reason Date(Month/Year) ICD 05/12/[address] [facility] in [place] 05/07/2014 [facility] ER-reaction to Excedrin- [facility] ER 01/20 Rash- [facility] 01/09- Sleep Study
--- OUTSIDE RECORDS SUMMARY | 2025-01-06 09:59 | XMS_ITS | Encounter Summary ---
Author Organization [place] [address] Care Team Providers Care Shopping Centre Manager Name Role Phone Alexys Arguelles MD Primary Care Provider +1 [phone] Encounter Details Date Type Department Care Team (Late st Contact Info) Description 05/07/2014 Orders Only SEP Arrhythmia Ctr Edg [address] [facility] [address] [place] [address] Branden Vora MD [address] [place], [place] [phone] Social History Tobacco Use Types Packs/Day Years [...] CARDIAC CATH ORDERABLES Edited Result - Final [facility] [address] [place] [address] documented in this encounter Visit Diagnoses Not on filedocumented in this encounter Care Teams Shopping Centre Manager Relationship Specialty Start Date End Date Alexys Arguelles MD [facility] [place] [address] [place] [address] PCP - General Family Medicine 05/07/14 documented as of this encounter
== END 2025-01-06 23:59 | disposition home or self-care (01) ==
LOC: RAD 09:56
PROVIDERS: PCP Family Medicine; Visit Provider Family Medicine
DX: Z12.31 Encounter for screening mammogram for malignant neoplasm of breast (principal)
CPT/HCPCS: 77063; 77067

== ENCOUNTER 2025-04-02 07:09 | Outpatient (CLI) | payer BC, SELFPAY ==
--- OUTSIDE RECORDS SUMMARY | 2023-12-11 04:30 | XMS_ITS ---
Author Organization [facility] Address [address] [facility] [address] [address] [id number] Care Team Providers Care Asphalt Roller Person Name Role Phone Katherine García Primary Care Provider [phone] GARCÍA MURPHY Unavailable Unavailable Allergies Allergen (clinical drug ingredient) Drug/Non Drug Allergy documented on EMR Reaction Allergy Type Onset Date Status ramipril Altace Unknown Drug Allergy Active aspirin Aspirin throat swelling Drug Allergy Active erythromycin Erythromycin Unknown Drug Allergy A ctive acetaminophen / aspirin / caffeine Excedrin Extra Strength Unknown Drug Allergy Active lisinopril Lisinopril Unknown Drug Allergy Activ e nitrofurantoin, macrocrystals / nitrofurantoin, monohydrate Macrobid Unknown Drug Allergy Active Maxzide hives Drug Allergy Active Sulfamethoxazole Unknown Drug Allergy Active Results Component Value Reference Range Notes Glucose (In-House) Reviewed date:12/12/2023 08:26:50 AM Interpretation:141 Performing Lab: Notes/Report: 141 blood glucose 141 74 - 106 mg/dL Glycohemoglobin A1c (in hous e) Reviewed date:12/12/2023 08:26:50 AM Interpretation:5.6 Normal Performing Lab: Notes/Report: 5.6 Normal glycohemoglobin 5.6% 5 - 6.5 % P-Vitamin B12 Reviewed date:12/12/2023 08:26:49 AM Interpretation:324 Performing Lab: Notes/Report: Test performed by [facility], [facility] [address] [place] [address] , [address], [place] [address] Zaid Olvera MD, Glass Loading Equipment Tender CLIA: [id number] Vitamin B12 625 364-0907 pg/mL P-Lipid Panel Reviewed date:12/12/2023 08:26:50 AM Interpretation: Normal Performing Lab: Notes/Report: Test performed by [facility], [address] [place], [place] [address] Zaid Olvera MD, Glass Loading Equipment Tender CLIA: [id number] Cholesterol 150 <200 mg/dL Triglycerides 136 <150 mg/dL HDL Cholesterol 56 >39 mg/dL Cholesterol / HDL Ratio 2.68 0.00-4.44 Ratio Non-HDL Cholesterol 94 <130 mg/dL LDL Cholesterol (Calculation) 67 <130 mg/dL LDL Cholesterol Levels* Less than 100 mg/dL Optimal 100 to 129 mg/dL Near Optimal/ Above Optimal 130 to 159 mg/dL Borderline High 160 to 189 mg/dL High 190 mg/dL and above Very High * Categories as recommended by the 2004 ATPIII guidelines LDL/HDL Ratio 1.2 <3.3 Ratio LDL Cholesterol Patient History Test Date: 06/12/2023 LDL Results: 68 Units: mg/dL % Change: - Test Date: 12/11/2023 LDL Results: 67 Units: mg/dL % Change: -1% P-Vitamin D 25-Hydroxy Reviewed date:12/12/2023 08:26:50 AM Interpretation: Normal Performing Lab: Notes/Report: Test performed by [facility], [facility] [address] [facility] [facility] , [address], [place] [address] Zaid Olvera MD, Glass Loading Equipment Tender CLIA: [id number] Vitamin D 25-Hydroxy 58.9 30.0-100.0 ng/mL Interpretation of Vitamin D 25 OH: < 20 ng/mL - Deficiency 20 - 29 ng/mL - Insufficiency 30 - 100 ng/mL - Sufficiency > 100 ng/mL - Super-therapeutic- toxicity may occur above this level. Clinical correlation required. REASON FOR VISIT checkup Medications Medication SIG (Take, Route, Frequency, Duration) Notes Start Date End Date Status Vitamin D (Ergocalciferol) 1.25 MG (15368 UT) TAKE 1 CAPSULE BY MOUTH 1 TIME A WEEK; Duration: 91 Active Escitalopram Oxalate 10 MG 1 tab(s) oral ly once a day; Duration: 90 days 07/25/2018 Active Spironolactone 25 MG 1/2 tab(s) orally 2 times a day Active ARIPiprazole 5 MG 1 tab(s) orally once a day; Duration: 90 days Active Atorvastatin Calcium 10 MG 1 tab(s) oral ly once a day 09/16/2019 Active Carvedilol 25 MG 2 tab(s) orally 2 ti mes a day Active Losartan Potassium 100 MG 1 tab(s) orall y once a day Active Furosemide 40 MG 1 tab(s) orally once a day Active Vital Signs Blood pressure systolic 108 mm Hg 12/11/19 24 Blood pressure diastolic 64 mm Hg 024 Heart Rate 67 /min 12/11/2023 Height 63 in 12/11/2023 Weight 260.8 lbs 12/11/2023 BMI 46.19 kg/m2 12/11/2023 Encounters Encounter Location Date Provider Diagnosis [facility] [address] [place], [place] [id number] 12/11/2023 García Vandemere Essential hypertensi on I10 ; Hypertriglyceridemia E78.1 ; Hyperglycemia R73.9 ; Vitamin B12 deficiency E53.8 ; Vitamin D deficiency E55.9 and Depressive disorder F32.9 Assessments Encounter Date Diagnosis (ICD Code) Assessment Notes Treatment Notes Treatment Clinical Notes Section Notes 12/11/2023 Essential hypertensi on (ICD-10 - I10) 12/11/2023 Hypertriglyceridemia (ICD-10 - E78.1) 12/11/2023 Hyperglycemia (ICD-1 0 - R73.9) 12/11/2023 Vitamin B12 deficien cy (ICD-10 - E53.8) 12/11/2023 Vitamin D deficiency (ICD-10 - E55.9) 12/11/2023 Depressive disorder (ICD-10 - F32.9) Plan Of Treatment Medication Medication Name Sig Start Date Stop Date Notes Escitalopram Oxalate 10 MG 1 tab(s) oral ly once a day; Duration: 90 days 07/25/2018 ARIPiprazole 5 MG 1 tab(s) orally once a day; Duration: 90 days Next Appt Details Follow Up: 6 Months, Reason: Provider Name:García Ling , 06/11/2025 10:15:00 AM, [address] [facility], [address] , [place], [place], [id number], Progress Notes * XIMENA FERNANDEZDOB:[birth year] (54 yo F)Acc No.[id number]:12/11/2023 Progress Notes Patient: XIMENA SCOTT Provider: Jluis Murphy M.D. :1970 A ge:53 Y S ex:Female Date:12/11/2023 Address:[address] [place] [address], [place], [id number] Subjective: * Chief Complaints: * 1 . Checkup. * HPI: C ardiology: 53 year old female presents with c/o Blood Pressure Elevated?Pt here to f/u on hypertension, states she is doing well and does not have any concerns. c/o Hyperlipidemia P t is fasting today. * ROS: D ERMATOLOGY: no R radha. n o H ondina. G ASTROENTEROLOGY: no N ausea. n o V omiting. U ROLOGY: no D ifficulty urinating. n o B lood in urine. * Medical History: D ilated cardiomyopathy, Left heart cath Dr. Henriquez , EF 30%, Congestive Heart Failure, systolic, EF 50% (July 2016), Hypertension, Pacer/ICD 05/07/14 Dr. Vora, Restless leg syndrome, Depression, Anxiety, Allergic Rhinitis, Asthma, 25 pack year smoking history as of 2019. * Surgical History: T onsillectomy , Hysterectomy, total vaginal , D&C , bladder tuck , ICD 05/07/2014, Sleep Study, Dr. Rosen 11/04/2017, Mammogram with Ultrasound - cyst on R 06/2018. * Hospitalization/Major Diagno stic Procedure: S leep Study , Rash- [facility] 01/09-, [facility] ER-reaction to Excedrin- [facility] ER 02/06/2009, [facility] [place] 05/07/2014, ICD 05/12/2015. * Family History: F ather: alive 76 yrs. M other: alive 75 yrs. S iblings: . 1 brother(s) . 1 son(s) , 2 daughter(s) . . * Social History: C URRENT TOBACCO USE S moking Status: P atient does NOT smoke, F ormer Smoker:?Yes, Q uit smokin 015. M arital Status: . Past smoking status: yes, Smoking status: Patient does smoke, Packs per day: 1, Since age of: 35, Smoking preference: cigarettes. * Medications: T aking Escitalopram Oxalate 10 MG Tablet 1 tab(s) orally once a day , Taking Carvedilol 25 MG Tablet 2 tab(s) orally 2 times a day , Taking Losartan Potassium 100 MG Tablet 1 tab(s) orally once a day , Taking Furosemide 40 MG Tablet 1 tab(s) orally once a day , Taking Spironolactone 25 MG Tablet 1/2 tab(s) orally 2 times a day , Taking Atorvastatin Calcium 10 MG Tablet 1 tab(s) orally once a day , Taking Vitamin D (Ergocalciferol) 1.25 MG (60733 UT) Capsule TAKE 1 CAPSULE BY MOUTH 1 TIME A WEEK , Taking ARIPiprazole 5 MG Tablet 1 tab(s) orally once a day , Discontinued EPI EZ PEN , Medication List reviewed and reconciled with the patient * Allergies: A ltace, Lisinopril, Excedrin Extra Strength, Aspirin: throat swelling, Maxzide: hives, Sulfamethoxazole, Macrobid, Erythromycin. Objective: * Vitals: W t:260.8, Temp:97.8, BP:108/64, HR:67, Nurse:davi, Ht: 63, BMI:46.19. * Examination: C ardiology: HEENT: u nremarkable. H eart sounds: R RR, normal S1, S2. L ungs: c lear, no rales or wheezes. E xtremities: n o leg edema. ? P sychology: General Appearance: N AD. G rooming : a dequate.?Eye contact : raj finney. M ood : carlene [place]right. Assessment: * Assessment: 1. E ssential hypertension - I10 (Primary) 2 . H ypertriglyceridemia - E78.1 3 . H yperglycemia - R73.9 4 . V itamin B12 deficiency - E53.8 5 . V itamin D deficiency - E55.9 6 . D epressive disorder - F32.9 Plan: * Treatment: Value Reference Range C holesterol / HDL Ratio 2.68 0.00-4.44 - Ratio * C holesterol 150 <200 - mg/dL * H DL Cholesterol 56 >39 - mg/dL * L DL Cholesterol (Calculation) 67 <130 - mg/d L * L DL/HDL Ratio 1.2 <3.3 - Ratio * N on-HDL Cholesterol 94 <130 - mg/dL * T riglycerides 136 <150 - mg/dL * Kassidy Olivarez 12/12/2023 8:26: 33 AM >See phone encounter 2.?Hyperglycemia?LAB: Glucose (In-House) (Collection Date & Time - 12/11/2023)?141* Value Reference Range b lood glucose 141 74 - 106 mg/dL * Susan Tripathi 12/11/2023 10:00:0 0 AM > Kassidy Olivarez 12/12/2023 8:26:33 AM >See phone encounter ?LAB: Glycohemoglobin A1c (in house) (Collection Date & Time - 12/11/2023)? 5.6 Normal* Value Reference Range g lycohemoglobin 5.6% 5 - 6.5 % * Susan Tripathi 12/11/2023 10:05:0 8 AM > Kassidy Olivarez 12/12/2023 8:26:33 AM >See phone encounter 3.?Vitamin B12 deficiency?LAB: P-Vitamin B12 (Collection Date & Time - 12/11/2023 08:42 AM)?324* Value Reference Range V itamin B12 342 596-1092 - pg/mL * Kassidy Olivarez 12/12/2023 8:26: 33 AM >See phone encounter 4.?Vitamin D deficiency?LAB: P-Vitamin D 25-Hydroxy (Collection Date & Time - 12/11/2023 08:42 AM)? Normal* Value Reference Range V itamin D 25-Hydroxy 58.9 30.0-100.0 - ng/mL * Kassidy Olivarez 12/12/2023 8:26: 33 AM >See phone encounter 5.?Depressive disorder? Refill Escitalopram Oxalate Tablet, 10 MG, 1 tab(s), orally, once a day, 90 days, 90, Refills 1; Refill ARIPiprazole Tablet, 5 MG, 1 tab(s), orally, once a day, 90 days, 90, Refills 1.? * Procedure Codes: 8 2950 GLUCOSE TEST, 01179 GLYCATED HEMOGLOBIN TEST, Modifiers: QW * Follow Up: 6 Months * Images: Billing Information: * Visit Code: 94608 Office Visit, Est Pt., Level 4. * Procedure Codes: 04447 GLUCOSE TEST. 21912 GLYCATED HEMOGLOBIN TEST. Modifiers: QW * Electronic signature of Shasta Murphy MD on 04/02/2025 at 07:12 AM EST Sign off status: Pending * Provider: Jluis Murphy M.D. Date: 0 12/11/2023 Generated for Omar oliver/Jelena/eTkashsmitting on: 1 06/03/2024 07:12 AM EST History and Physical Notes * HPI (History of Present Illness) Category Sub-Category Detail Notes Category Not es Cardiology Blood Pressure Elevated Pt here to f/u on hypertension, states she is doing well and does not have any concerns Hyperlipidemia Pt is fasting today Examination Category Sub-Category Detail Notes Category Not es Cardiology Lungs: clear, no rales or wheezes HEENT: unremarkable Heart sounds: RRR, normal S1, S2 Extremities: no leg edema Psychology General Appearance: NAD Grooming : adequate Eye contact : normal Mood : pleasant
--- OUTSIDE RECORDS SUMMARY | 2024-06-10 04:45 | XMS_ITS ---
Author Organization [facility] Address [address] [phone] Care Team Providers Care Mold Carpenter Name Role Phone Katherine García Primary Care Provider GARCÍA MURPHY Unavailable Unavailable Allergies Allergen (clinical [...] Value Reference Range Notes Glucose (In-House) Reviewed date:06/12/2024 09:28:26 AM Interpretation:108 Performing Lab: Notes/Report: 108 blood glucose 108 74 - 106 mg/dL Glycohemoglobin A1c (in hous e) Reviewed date:06/12/2024 09:28:26 AM Interpretation:5.8% Performing Lab: Notes/Report: 5.8% glycohemoglobin 5.8% 5 - 6.5 % P-Vitamin B12 Reviewed date:06/12/2024 09:28:26 AM Interpretation:281 Performing Lab: Notes/Report: Test performed by [facility], [facility] [address] [place] [address] , [address], [place] [address] Zaid Olvera MD, Signalling And Communications Engineer CLIA: [id number] Vitamin B12 393 558-7306 pg/mL P-Comprehensive Metabolic Pa francia (CMP) Reviewed date:06/12/2024 09:28:26 AM Interpretation:gluc 101, Cr 1.13, gfr 57 Performing Lab: Notes/Report: Test performed by [facility] [address] [place] [address] , [address], [place] [address] Zaid Olvera MD, Signalling And Communications Engineer CLIA: [id number] Sodium 141 135-145 mmol/L Potassium 4.2 3.5-5.3 mmol/L Chloride 101 97-108 mmol/L CO2 28 22-32 mmol/L Glucose 101 65-99 mg/dL BUN 14 6-20 mg/dL Creatinine 1.13 0.50-1.00 mg/dL Calcium 9.8 8.6-10.4 mg/dL eGFR by Creatinine 57 >59 mL/min/1.73m2 Protein 7.5 6.0-8.3 g/dL Albumin 4.5 3.5-5.3 g/dL Alkaline Phosphatase 72 35-121 IU/L ALT (SGPT) 21 <5-47 IU/L AST (SGOT) 20 <5-40 IU/L Bilirubin, Total 0.9 <0.2-1.2 mg/dL A/G Ratio 1.5 1.1-2.5 P-Lipid Panel Reviewed date:06/12/2024 09:28:26 AM Interpretation: Normal Performing Lab: Notes/Report: Test performed by [facility] [address] [place] [address] , [address], [place] [address] Zaid Olvera MD, Signalling And Communications Engineer CLIA: [id number] Cholesterol 159 <200 mg/dL Triglycerides 126 <150 mg/dL HDL Cholesterol 63 >39 mg/dL Cholesterol / HDL Ratio 2.52 0.00-4.44 Ratio Non-HDL Cholesterol 96 <130 mg/dL LDL Cholesterol (Calculation) 71 <130 mg/dL LDL Cholesterol Levels* Less than 100 mg/dL Optimal 100 to 129 mg/dL Near Optimal/ Above Optimal 130 to 159 mg/dL Borderline High 160 to 189 mg/dL High 190 mg/dL and above Very High * Categories as recommended by the 2004 ATPIII guidelines LDL/HDL Ratio 1.1 <3.3 Ratio LDL Cholesterol Patient History Test Date: 06/12/2023 LDL Results: 68 Units: mg/dL % Change: - Test Date: 12/11/2023 LDL Results: 67 Units: mg/dL % Change: -1% Test Date: 06/10/2024 LDL Results: 71 Units: mg/dL % Change: +5% P-Vitamin D 25-Hydroxy Reviewed date:06/12/2024 09:28:26 AM Interpretation:32.9 Performing Lab: Notes/Report: Test performed by [facility], [address] , [place], [place] [address] Zaid Olvera MD, Signalling And Communications Engineer CLIA: [id number] Vitamin D 25-Hydroxy 32.9 30.0-100.0 ng/mL Interpretation of Vitamin D 25 OH: < 20 ng/mL - Deficiency 20 - 29 ng/mL - Insufficiency 30 - 100 ng/mL - Sufficiency > 100 ng/mL - Super-therapeutic- toxicity may occur above this level. Clinical correlation required. REASON FOR VISIT 6 months Medications Medication SIG (Take, Route, Frequency, Duration) Notes Start Date End Date Status Furosemide 40 MG 1 tab(s) orally once a day Active Vitamin D (Ergocalciferol) 1.25 MG (43425 UT) TAKE 1 CAPSULE BY MOUTH 1 TIME A WEEK; Duration: 91 Active Atorvastatin Calcium 10 MG 1 tab(s) oral ly once a day 09/16/2019 Active ARIPiprazole 5 MG 1 tab(s) orally once a day; Duration: 90 days Active Spironolactone 25 MG 1/2 tab(s) orally 2 times a day Active Losartan Potassium 100 MG 1 tab(s) orall y once a day Active Carvedilol 25 MG 2 tab(s) orally 2 ti mes a day Active Escitalopram Oxalate 10 MG 1 tab(s) oral ly once a day; Duration: 90 days 07/25/2018 Active Vital Signs Blood pressure systolic 112 mm Hg 06/10/19 25 Blood pressure diastolic 70 mm Hg 025 Heart Rate 64 /min 06/10/2024 Height 63 in 06/10/2024 Weight 271.2 lbs 06/10/2024 BMI 48.04 kg/m2 06/10/2024 Encounters Encounter Location Date Provider Diagnosis [facility] [facility] [facility] [address] [phone] 06/10/2024 García Murphy Essential hypertensi on I10 ; Mixed hyperlipidemia E78.2 ; Hypertriglyceridemia E78.1 ; IFG (impaired fasting glucose) R73.01 ; Vitamin D deficiency E55.9 ; Vitamin B12 deficiency E53.8 and Depression with anxiety F41.8 Assessments Encounter Date Diagnosis (ICD Code) Assessment Notes Treatment Notes Treatment Clinical Notes Section Notes 06/10/2024 Essential hypertensi on (ICD-10 - I10) 06/10/2024 Mixed hyperlipidemia (ICD-10 - E78.2) 06/10/2024 Hypertriglyceridemia (ICD-10 - E78.1) 06/10/2024 IFG (impaired fastin g glucose) (ICD-10 - R73.01) 06/10/2024 Vitamin D deficiency (ICD-10 - E55.9) 06/10/2024 Vitamin B12 deficien cy (ICD-10 - E53.8) 06/10/2024 Depression with anxi ety (ICD-10 - F41.8) Plan Of Treatment Medication Medication Name Sig Start Date Stop Date Notes ARIPiprazole 5 MG 1 tab(s) orally once a day; Duration: 90 days Escitalopram Oxalate 10 MG 1 tab(s) oral ly once a day; Duration: 90 days 07/25/2018 Next Appt Details Follow Up: 6 Months, Reason: Provider Name:García Ling ry, 06/11/2025 10:15:00 AM, [address], [address], [place], [place], [id number], Progress Notes * XIMENA BERGERDOB:[birth year] (54 yo F)Acc No.[id number]:06/10/2024 Progress Notes Patient: XIMENA SCOTT Provider: Jluis Murphy M.D. :1970 A ge:53 Y S ex:Female Date:06/10/2024 Address:[address] [place] [address], [place], [id number] Subjective: * Chief Complaints: * 1 . 6 months. * HPI: E ndocrinology: 53 year old female presents with c/o Maintenance P t presents today for a 6 month check up. Pt is fasting today. Pt sts that she needs refills today. Pt sts that she is doing well and has no new concerns or complaints at this time. * ROS: D ERMATOLOGY: no R rad[facility]. [facility], ICD 05/12/2015. * Family History: F ather: alive 77 yrs. M other: alive 76 yrs. S iblings: . 1 brother(s) . [...] Smoking preference: cigarettes. * Medications: T aking Carvedilol 25 MG Tablet 2 tab(s) orally [...] , Taking Vitamin D (Ergocalciferol) 1.25 MG (63312 UT) Capsule TAKE 1 CAPSULE BY MOUTH 1 TIME A WEEK , Taking Escitalopram Oxalate 10 MG Tablet 1 tab(s) orally once a day , Taking ARIPiprazole 5 MG Tablet 1 tab(s) orally once a day , Medication List reviewed and reconciled with the patient * Allergies: A ltace, Lisinopril, Excedrin Extra Strength, Aspirin: throat swelling, Maxzide: hives, Sulfamethoxazole, Macrobid, Erythromycin. Objective: * Vitals: W t:271.2, Temp:97.8, BP:112/70, HR:64, Nurse:LESA, Ht: 63, BMI:48.04. * Examination: C ardiology: HEENT: u nremarkable. H eart sounds: R RR, normal S1, S2. L ungs: c lear, no rales or wheezes. E xtremities: n o leg edema. ? P sychology: General Appearance: N AD. G rooming : a dequate.?Eye contact : n ormal. M ood : p leasant. Assessment: * Assessment: 1. E ssential hypertension - I10 (Primary) 2 . M ixed hyperlipidemia - E78.2 3 . H ypertriglyceridemia - E78.1 4 . I FG (impaired fasting glucose) - R73.01 5 . V itamin D deficiency - E55.9 6 . V itamin B12 deficiency - E53.8 7 . D epression with anxiety - F41.8 ? Plan: * Treatment: Value Reference Range A /G Ratio 1.5 1.1-2.5 - * A lbumin 4.5 3.5-5.3 - g/dL * A lkaline Phosphatase 72 35-121 - IU/L * A LT (SGPT) 21 <5-47 - IU/L * A ST (SGOT) 20 <5-40 - IU/L * B ilirubin, Total 0.9 <0.2-1.2 - mg/dL * B UN 14 6-20 - mg/dL * C alcium 9.8 8.6-10.4 - mg/dL * C hloride 101 97-108 - mmol/L * C O2 28 22-32 - mmol/L * C reatinine 1.13 H 0.50-1.00 - mg/dL * G lucose 101 H 65-99 - mg/dL * P otassium 4.2 3.5-5.3 - mmol/L * S odium 141 135-145 - mmol/L * P rotein 7.5 6.0-8.3 - g/dL * e GFR by Creatinine 57 L >59 - mL/min/1.73m2 * Kassidy Olivarez 06/12/2024 9:28: 15 AM >See phone encounter 2.?Mixed hyperlipidemia?LAB: P-Comprehensive Metabolic Panel (CMP) (Collection Date & Time - 06/10/2024 09:25 AM)?gluc 101, Cr 1.13, gfr 57* Value Reference Range A /G Ratio 1.5 1.1-2.5 - * A lbumin 4.5 3.5-5.3 - g/dL * A lkaline Phosphatase 72 35-121 - IU/L * A LT (SGPT) 21 <5-47 - IU/L * A ST (SGOT) 20 <5-40 - IU/L * B ilirubin, Total 0.9 <0.2-1.2 - mg/dL * B UN 14 6-20 - mg/dL * C alcium 9.8 8.6-10.4 - mg/dL * C hloride 101 97-108 - mmol/L * C O2 28 22-32 - mmol/L * C reatinine 1.13 H 0.50-1.00 - mg/dL * G lucose 101 H 65-99 - mg/dL * P otassium 4.2 3.5-5.3 - mmol/L * S odium 141 135-145 - mmol/L * P rotein 7.5 6.0-8.3 - g/dL * e GFR by Creatinine 57 L >59 - mL/min/1.73m2 * Kassidy Olivarez 06/12/2024 9:28: 15 AM >See phone encounter ?LAB: P-Lipid Panel (Collection Date & Time - 06/10/2024 09:25 AM)?Normal* Value Reference Range C holesterol / HDL Ratio 2.52 0.00-4.44 - Ratio * C holesterol 159 <200 - mg/dL * H DL Cholesterol 63 >39 - mg/dL * L DL Cholesterol (Calculation) 71 <130 - mg/d L * L DL/HDL Ratio 1.1 <3.3 - Ratio * N on-HDL Cholesterol 96 <130 - mg/dL * T riglycerides 126 <150 - mg/dL * Kassidy Olivarez 06/12/2024 9:28: 15 AM >See phone encounter 3.?Hypertriglyceridemia?LAB: P-Comprehensive Metabolic Panel (CMP) (Collection Date & Time - 06/10/2024 09:25 AM)?gluc 101, Cr 1.13, gfr 57* Value Reference Range A /G Ratio 1.5 1.1-2.5 - * A lbumin 4.5 3.5-5.3 - g/dL * A lkaline Phosphatase 72 35-121 - IU/L * A LT (SGPT) 21 <5-47 - IU/L * A ST (SGOT) 20 <5-40 - IU/L * B ilirubin, Total 0.9 <0.2-1.2 - mg/dL * B UN 14 6-20 - mg/dL * C alcium 9.8 8.6-10.4 - mg/dL * C hloride 101 97-108 - mmol/L * C O2 28 22-32 - mmol/L * C reatinine 1.13 H 0.50-1.00 - mg/dL * G lucose 101 H 65-99 - mg/dL * P otassium 4.2 3.5-5.3 - mmol/L * S odium 141 135-145 - mmol/L * P rotein 7.5 6.0-8.3 - g/dL * e GFR by Creatinine 57 L >59 - mL/min/1.73m2 * Kassidy Olivarez 06/12/2024 9:28: 15 AM >See phone encounter ?LAB: P-Lipid Panel (Collection Date & Time - 06/10/2024 09:25 AM)?Normal* Value Reference Range C holesterol / HDL Ratio 2.52 0.00-4.44 - Ratio * C holesterol 159 <200 - mg/dL * H DL Cholesterol 63 >39 - mg/dL * L DL Cholesterol (Calculation) 71 <130 - mg/d L * L DL/HDL Ratio 1.1 <3.3 - Ratio * N on-HDL Cholesterol 96 <130 - mg/dL * T riglycerides 126 <150 - mg/dL * Kassidy Olivarez 06/12/2024 9:28: 15 AM >See phone encounter 4.?IFG (impaired fasting glucose)?LAB: Glucose (In-House) (Collection Date & Time - 06/10/2024)?108* Value Reference Range b lood glucose 108 74 - 106 mg/dL * Liz Curtis 06/10/2024 11:03 :45 AM > Kassidy Olivarez 06/12/2024 9:28:15 AM >See phone encounter ?LAB: Glycohemoglobin A1c (in house) (Collection Date & Time - 06/10/2024)? 5.8%* Value Reference Range g lycohemoglobin 5.8% 5 - 6.5 % * Liz Curtis 06/10/2024 11:04 :03 AM > Kassidy Olivarez 06/12/2024 9:28:15 AM >See phone encounter 5.?Vitamin D deficiency?LAB: P-Vitamin D 25-Hydroxy (Collection Date & Time - 06/10/2024 09:25 AM)? 32.9* Value Reference Range V itamin D 25-Hydroxy 32.9 30.0-100.0 - ng/mL * Kassidy Olivarez 06/12/2024 9:28: 15 AM >See phone encounter 6.?Vitamin B12 deficiency?LAB: P-Vitamin B12 (Collection Date & Time - 06/10/2024 09:25 AM)?281* Value Reference Range V itamin B12 696 942-4278 - pg/mL * Kassidy Olivarez 06/12/2024 9:28: 15 AM >See phone encounter 7.?Depression with anxiety? Refill Escitalopram Oxalate Tablet, 10 MG, 1 tab(s), orally, once a day, 90 days, 90, Refills 1; Refill ARIPiprazole Tablet, 5 MG, 1 tab(s), orally, once a day, 90 days, 90, Refills 1.? * Procedure Codes: 8 2950 GLUCOSE TEST, [address] GLYCATED HEMOGLOBIN TEST, Modifiers: QW , 3074F SYST BP LT 130 MM HG, 3078F DIAST BP < 80 MM HG, 3044F HG A1C LEVEL LT 7.0% * Follow Up: 6 Months * Images: Billing Information: * Visit Code: 30345 Office Visit, Est Pt., Level 4. * Procedure Codes: 48652 GLUCOSE TEST. [address] GLYCATED HEMOGLOBIN TEST. Modifiers: QW 3074F SYST BP LT 130 MM HG. 3078F DIAST BP < 80 MM HG. 3044F HG A1C LEVEL LT 7.0%. * Electronic signature of Shasta Murphy MD on 04/02/2025 at 07:11 AM EST Sign off status: Pending * Provider: Jluis Murphy M.D. Date: 0 06/10/2024 Generated for Parrishi ng/Fayajairag/eTransmitting on: 1 06/03/2024 07:11 AM EST History and Physical Notes * HPI (History of Present Illness) Category Sub-Category Detail Notes Category Not es [facility]ocrinology [facility] Pt is fasting today. Pt sts that she needs refills today. Pt sts that she is doing well and has no new concerns or complaints at this time Examination Category Sub-Category Detail Notes Category Not es Cardiology Lungs: clear, no rales or wheezes HEENT: unremarkable Heart sounds: RRR, normal S1, S2 Extremities: no leg edema Psychology General Appearance: NAD Grooming : adequate Eye contact : normal Mood : pleasant
--- OUTSIDE RECORDS SUMMARY | 2024-12-09 04:45 | XMS_ITS ---
Author Organization [facility] Address [address] [phone] Care Team Providers Care Artificial Breeding Ranch Supervisor Name Role Phone Katherine García Primary Care [...] Value Reference Range Notes Glucose (In-House) Reviewed date:12/09/2024 11:00:09 AM Interpretation: Performing Lab: Notes/Report: blood glucose 132 74 - 106 mg/dL Glycohemoglobin A1c (in hous e) Reviewed date:12/09/2024 10:59:59 AM Interpretation: Performing Lab: Notes/Report: glycohemoglobin 5.8% 5 - 6.5 % P-Vitamin B12 Reviewed date:12/15/2024 11:04:08 AM Interpretation:363 Performing Lab: Notes/Report: CLIA: [id number] Zaid Olvera MD, Ob/Gyn Physician [address] [place] [address] , [address], [place] [address] Test performed by [employer] [employer] Vitamin B12 908 704-8997 pg/mL P-Basic Metabolic Panel (BMP ) Reviewed date:12/15/2024 11:04:08 AM Interpretation:gluc 113 Performing Lab: Notes/Report: Test performed by [facility] [address] , [place] [address] Zaid Olvera MD, Ob/Gyn Physician CLIA: [id number] Sodium 143 135-145 mmol/L Potassium 4.0 3.5-5.3 mmol/L Chloride 104 97-108 mmol/L CO2 26 20-32 mmol/L Glucose 113 65-99 mg/dL BUN 10 6-20 mg/dL Creatinine 0.94 0.50-1.00 mg/dL Calcium 9.1 8.6-10.4 mg/dL eGFR by Creatinine 71 >59 mL/min/1.73m2 P-Vitamin D 25-Hydroxy Reviewed date:12/15/2024 11:04:08 AM Interpretation:34.5 Performing Lab: Notes/Report: Test performed by [facility] [address] [place] [address] [address], [place] [address] Zaid Olvera MD, Ob/Gyn Physician CLIA: [id number] Vitamin D 25-Hydroxy 34.5 30.0-100.0 ng/mL Interpretation of Vitamin D 25 OH: < 20 ng/mL - Deficiency 20 - 29 ng/mL - Insufficiency 30 - 100 ng/mL - Sufficiency > 100 ng/mL - Super-therapeutic- toxicity may occur above this level. Clinical correlation required. Intrinsic Factor Blocking An tibody Reviewed date:12/15/2024 11:04:08 AM Interpretation:Normal Performing Lab: Notes/Report: Intrinsic Factor Blocking Antibody Negative Negative Performed By: [facility] [address] [place] [address] Ob/Gyn Physician: Jamar Ortiz MD, PhD CLIA Number: [id number] REASON FOR VISIT 6 month checkup Medications Medication SIG (Take, Route, Frequency, Duration) Notes Start Date End Date Status Vitamin D3 50 MCG (1999) 2 capsules O rally Once a day 06/16/2024 Active Spironolactone 25 MG 1/2 tab(s) orally 2 times a day Active Atorvastatin Calcium 10 MG 1 tab(s) oral ly once a day 09/16/2019 Active Vitamin B-12 1000 MCG 1 tablet Orally On ce a day 06/16/2024 Active Furosemide 40 MG 1 tab(s) orally once a day Active Carvedilol 25 MG 2 tab(s) orally 2 ti mes a day Active Losartan Potassium 100 MG 1 tab(s) orall y once a day Active ARIPiprazole 5 MG 1 tab(s) orally once a day; Duration: 90 days Active Escitalopram Oxalate 10 MG TAKE 1 TABLET BY MOUTH DAILY; Duration: 90 Active Problems Problem Type SNOMED Code ICD Code Onset Dates Problem Status W/U Status Risk Notes Problem Impaired fasting glycaemia (616053470) IFG (impaired fasting glucose) (R73.01) Active confirmed Vital Signs Blood pressure systolic 112 mm Hg 12/10/19 Blood pressure diastolic 70 mm Hg 025 Heart Rate 64 /min 12/09/2024 Height 63 in 12/09/2024 Weight 272.8 lbs 12/09/2024 BMI 48.32 kg/m2 12/09/2024 Encounters Encounter Location Date Provider [facility] [address] [facility] [address] [place] [phone] 12/09/2024 García Murphy Essential hypertensi on I10 ; Vitamin D deficiency E55.9 ; Vitamin B12 deficiency E53.8 ; IFG (impaired fasting glucose) R73.01 and Excessive wax in both ears H61.23 Assessments Encounter Date Diagnosis (ICD Code) Assessment Notes Treatment Notes Treatment Clinical Notes Section Notes 12/09/2024 Essential hypertension (ICD-10 - I10) 12/09/2024 Vitamin D deficiency (ICD-10 - E55.9) 12/09/2024 Vitamin B12 deficiency (ICD-10 - E53.8) 12/09/2024 IFG (impaired fasting glucose) (ICD-10 - R73.01) 12/09/2024 Excessive wax in both ears (ICD-10 - H61.23) 12/09/2024 Other Patient to complete Cologuard test Plan Of Treatment Medication Medication Name Sig Start Date Stop Date Notes Vitamin D3 50 MCG (1999 UT) 2 capsules Orally Once a day 0 06/16/2024 Spironolactone 25 MG 1/2 tab(s) orally 2 times a day Vitamin B-12 1000 MCG 1 tablet Orally Once a day Furosemide 40 MG 1 tab(s) orally once a day Carvedilol 25 MG 2 tab(s) orally 2 times a day Losartan Potassium 100 MG 1 tab(s) orally once a day Treatment Notes Assessment Notes Other Patient to complete Cologuard test Pending Test Test Name Order Date P-Intrinsic Factor Blocking Antibody Next Appt Details Follow Up: 6 Months, Reason: Provider Name:García Ling ry, 06/11/2025 10:15:00 AM, [address], [address], [place], [place], [id number], Procedure Notes * Category Sub-Category Detail Notes Irrigation Of Ears Procedure Ear prepped b y soaking with H2O2, Flushed with peroxide and warm water, Ears irrigated free of only some of the wax. Patient wanted to stop due to discomfort Progress Notes * XIMENA FERNANDEZDOB:[birth year] (54 yo F)Acc No.[id number]:12/09/2024 Progress Notes Patient: XIMENA SCOTT Provider: Jluis Murphy M.D. :1970 A ge:54 Y S ex:Female Date:12/09/2024 Address:[address] [place] [address], [place], [id number] Subjective: * Chief Complaints: * 1 . 6 month checkup. * HPI: C ardiology: 54 year old female presents with c/o Blood Pressure Elevated?Pt here for 6 mo check up on hypertension. Pt states she is doing well and does not have any concerns . c/o Hyperlipidemia P t is fasting today. * ROS: D ERMATOLOGY: no R radha. n o H ondina. E NT: Hearing loss y es, b ilateral ears. G ASTROENTEROLOGY: no N ausea. n o [...] stic Procedure: S leep Study , Rash- [facility] 01/09-, [facility] ER-reaction to Excedrin- [facility] ICD 05/12/2015. * Family History: F ather: alive 77 yrs. M other: alive 76 yrs. S iblings: . 1 brother(s) . 1 son(s) , 2 daughter(s) . . * Social History: C URRENT TOBACCO USE: No S moking Status: P atient does NOT [...] orally once a day , Taking Vitamin B-12 1000 MCG Tablet 1 tablet Orally Once a day , Taking Vitamin D3 50 MCG (2000 UT) Capsule 2 capsules Orally Once a day , Taking Escitalopram Oxalate 10 MG Tablet TAKE 1 TABLET BY MOUTH DAILY , Medication List reviewed and reconciled with the patient * Allergies: A ltace, Lisinopril, Excedrin Extra Strength, Aspirin: throat swelling, Maxzide: hives, Sulfamethoxazole, Macrobid, Erythromycin. Objective: * Vitals: W t: 272.8, Temp: 97.7, BP: 112/70, HR: 64, Nurse: davi, Ht: 63, BMI:48.32. * Examination: C ardiology: HEENT: b oth ear canals obstructed by dried cerumen. H eart sounds: R RR, normal S1, S2. L ungs: c lear, no rales or wheezes. E xtremities:?no leg edema. P sychology: General Appearance: N AD. G rooming : a dequate.?Eye contact : n ormal. M ood : p leasant. Assessment: * Assessment: 1. E ssential hypertension - I10 (Primary) 2 . V itamin D deficiency - E55.9 3 . V itamin B12 deficiency - E53.8 4 . I FG (impaired fasting glucose) - R73.01 5 . E xcessive wax in both ears - H61.23 Plan: * Treatment: Value Reference Range B UN 10 6-20 - mg/dL * C alcium 9.1 8.6-10.4 - mg/dL * C hloride 104 97-108 - mmol/L * C O2 26 20-32 - mmol/L * C reatinine 0.94 0.50-1.00 - mg/dL * G lucose 113 H 65-99 - mg/dL * P otassium 4.0 3.5-5.3 - mmol/L * S odium 143 135-145 - mmol/L * e GFR by Creatinine 71 >59 - mL/min/1.73m2 * Cindy Levi 12/15/2024 11: 04:02 AM EDT > See phone encounter 2.?Vitamin D deficiency? Continue Vitamin D3 Capsule, 50 MCG (2000 UT), 2 capsules, Orally, Once a day.?LAB: P-Vitamin D 25-Hydroxy (Collection Date & Time - 12/09/2024 09:05 AM)? 34.5* Value Reference Range V itamin D 25-Hydroxy 34.5 30.0-100.0 - ng/mL * Cindy Levi 12/15/2024 11: 04:02 AM EDT > See phone encounter 3.?Vitamin B12 deficiency? Continue Vitamin B-12 Tablet, 1000 MCG, 1 tablet, Orally, Once a day.?LAB: P-Intrinsic Factor Blocking Antibody ?LAB: P-Vitamin B12 (Collection Date & Time - 12/09/2024 09:05 AM)?363* Value Reference Range V itamin B12 429 799-2801 - pg/mL * Cindy Levi 12/15/2024 11: 04:02 AM EDT > See phone encounter 4.?IFG (impaired fasting glucose)?LAB: Glucose (In-House) (Collection Date & Time - 12/09/2024)* Value Reference Range b lood glucose 132 74 - 106 mg/dL * Susan Tripathi 12/09/2024 10:56: 53 AM EDT > Provider reviewed results while patient in office. ?LAB: Glycohemoglobin A1c (in house) (Collection Date & Time - 12/09/2024)* Value Reference Range g lycohemoglobin 5.8% 5 - 6.5 % * Susan Tripathi 12/09/2024 10:57: 22 AM EDT > Provider reviewed results while patient in office. 5.?Others? Notes: Patient to complete Cologuard test?? * Procedures: I rrigation Of Ears: Procedure E ar prepped by soaking with H2O2, Flushed with peroxide and warm water, Ears irrigated free of only some of the wax. Patient wanted to stop due to discomfort. * Labs: * L ab: Intrinsic Factor Blocking Antibody (Collection Date & Time - 12/09/2024 09:05 AM) N ormal Value Reference Range I ntrinsic Factor Blocking Antibody Negative Negati ve - * [facility], support 12/11/2024 03:15:06 : This order was created by the Interface. Cindy Levi 12/15/2024 11:04:02 AM EDT > See phone encounter * Procedure Codes: 6 9210 EAR IRRIGATION, [address] GLUCOSE TEST, 17858 GLYCATED HEMOGLOBIN TEST, Modifiers: QW , 3044F HG A1C LEVEL LT 7.0%, 1036F TOBACCO NON-USER, 3074F SYST BP LT 130 MM HG, 3078F DIAST BP < 80 MM HG * Follow Up: 6 Months * Images: Billing Information: * Visit Code: 44231 Office Visit, Est Pt., Level 4. Modifiers: 25 * Procedure Codes: 30748 EAR IRRIGATION. 29658 GLUCOSE TEST. 25448 GLYCATED HEMOGLOBIN TEST. Modifiers: QW 3044F HG A1C LEVEL LT 7.0%. 1036F TOBACCO NON-USER. 3074F SYST BP LT 130 MM HG. 3078F DIAST BP < 80 MM HG. * Electronic signature of Shasta Murphy MD on 04/02/2025 at 07:12 AM EST Sign off status: Pending * Provider: Jluis Murphy M.D. Date: 0 12/09/2024 Generated for Omar oliver/Jelena/Bibiitting on: 1 06/03/2024 07:12 AM EST History and Physical Notes * HPI (History of Present Illness) Category Sub-Category Detail Notes Category Not es Cardiology Blood Pressure Elevated Pt here for 6 mo check up on hypertension. Pt states she is doing well and does not have any concerns Hyperlipidemia Pt is fasting today Examination Category Sub-Category Detail Notes Category Not es Cardiology Lungs: clear, no rales or wheezes HEENT: both ear canals obst ructed by dried cerumen Heart sounds: RRR, normal S1, S2 Extremities: no leg edema Psychology General Appearance: NAD Grooming : adequate Eye contact : normal Mood : pleasant
--- OUTSIDE RECORDS SUMMARY | 2025-04-02 07:12 | XMS_ITS | Encounter Summary ---
Author Organization [place] [address] Care Team Providers Care Lead Mechanical Engineer Name Role Phone Alexys Arguelles MD Primary Care Provider +1 -[phone] Encounter Details Date Type Department Care Team (Late st Contact Info) Description 05/07/2014 Orders Only SEP Arrhythmia Ctr Edg [address] [facility] [address] [place] [address] Branden Vora MD [address] [place], [place] [id number] Social History Tobacco Use Types Packs/Day Years Used Date Smoking Tobacco: Every Day Cigarettes 1 19.9 Started: 05/06/2005 Smokeless Tobacco: Never Alcohol Use Standard Drinks/Week Comments No 0 (1 standard drink = 0.6 oz pur e alcohol) Comments No Sex and Gender Information Value Date Recorded Sex Assigned at Not on file Legal Sex Female 4:42 PM EST Gender Identity Not on file Sexual Orientation Not on file documented as of this encounter Functional Status documented as of this encounter Mental Status * Question Answer Entry Date Author Because of a physical, menta l or emotional condition, does this person have difficulty doing errands alone such as visiting a doctor's office or shopping? No 05/08/2014 11:53 AM Grace Mccallum RN Because of a physical, menta l or emotional condition, does this person have serious difficulty concentrating, remembering or making decisions? No 05/08/2014 11:53 AM Grace Mccallum RN documented in this encounter Plan of Treatment Not on file documented as of this encounter Procedures Procedure Name Priority Date/Time Associated Diagnosis Comments ELECTROPHYSIOLOGY OR IMPLANT PROCEDURE LOG Routine 05/07/2014 1:58 PM EST documented in this encounter Results * ELECTROPHYSIOLOGY OR IMPLANT PROCEDURE LOG (05/07/2014 1:58 PM EST) 05/07/2014 1:5 8 PM EST us Branden Vora MD CARDIAC CATH ORDERABLES Edited Result - Final Performing Organization Address City/State/[facility] Co de Phone Number [facility] [address] [place] [address] documented in this encounter Visit Diagnoses Not on filedocumented in this encounter Care Teams Lead Mechanical Engineer Relationship Specialty Start Date End Date Alexys Arguelles MD [address] [place] [address] [address] [place] [address] PCP - General Family Medicine 05/07/14 documented as of this encounter
--- OUTSIDE RECORDS SUMMARY | 2025-04-02 07:12 | XMS_ITS | Clinical Summary ---
Author Organization [facility] Address [address] [place] [address] Phone Care Team Providers Care Supervisor Gear Repair Name Role Phone Alexys Arguelles MD Primary Care Provider +1 -[phone] Allergies Active Allergy Reactions Criticality Noted Date [...] 1 19.9 Started: 05/06/2005 Smokeless Tobacco: Never Tobacco Cessation:Ready to Q uit: No; Counseling Given: Yes Alcohol Use Standard Drinks/Week Comments No 0 (1 standard drink = 0.6 oz pur e alcohol) Comments No Sex and Gender Information Value Date Recorded Sex Assigned at Not on file Legal Sex Female 4:42 PM EST Gender Identity Not on file Sexual Orientation Not on file Last Filed Vital Signs Vital Sign Reading [...] of 2) 2018 COVID-19 Vaccine (1 - 2024-2 6 season) 2024 Influenza Vaccine (#1) 2024 Meningococcal B Vaccine Aged Out No l onger eligible based on patient's age to complete this topic Medical Devices Implanted Type Area Motor Vehicle Light Assembler Device Identifier Shelf Expiration Date Model / Serial / Lot Lead Tachyarrhythmia Implantable Sprint Quattro Secure 62cm - [id number] Implanted:Qty: 1 on 05/07/2014 by Branden Vora MD at [facility] POWER TOOL REPAIR TECHNICIAN [employer]:PACING SYS 6935M-62 / [id number] / Lead Quad L V W/S Curve Fix 86cm - [id number] Implanted:Qty: 1 on 05/07/2014 by Branden Vora MD at [facility] POWER TOOL REPAIR TECHNICIAN [employer]:CARDIAC RHYM MGMT 1458Q/86 / [id number] / Lead Tendril Sdx Bipolar Ventricular Screw-In Steroid Elutin - [id number] Implanted:Qty: 1 on 05/07/2014 by Branden Vora MD at [facility] POWER TOOL REPAIR TECHNICIAN [employer]:CARDIAC RHYM MGMT 1688TC/52 / [id number] / Defibrillator Quadra Assura Public [employer] Police-D - [id number] Implanted:Qty: 1 on 05/07/2014 by Branden Vora MD at [facility] POWER TOOL REPAIR TECHNICIAN [employer]:CARDIAC RHYM MGMT [id number] / [id number] / Insurance ANTHEM PPO ANTHEM PPO Advance Directives For more information, please contact: [phone] * Full Code (Latest Code Status on File) Date Activated Date Inactivated Comments 05/06/2014 9:29 PM 05/08/2014 5:00 PM Care Teams Supervisor Gear Repair Relationship Specialty Start Date End Date Alexys Arguelles MD [address] [facility] [address] [place] [phone] PCP - General Family Medicine 05/07/14
--- OUTSIDE RECORDS SUMMARY | 2025-04-02 07:12 | XMS_ITS | Encounter Summary ---
Author Organization [place] [address] Care Team Providers Care Case Mgr Name Role Phone Alexys Arguelles MD Primary Care Provider +1 [phone] Encounter Details Date Type Department Care Team (Late st Contact Info) Description 05/07/2014 Orders Only SEP Arrhythmia Ctr Edg [address] [facility] [address] [place] [address] Branden Vora MD [address] [place], [place] [id number] Social History Tobacco Use Types Packs/Day Years [...] EST) 05/07/2014 10:2 7 PM EST Narrative [facility] - 05/07/2014 5:28 PM EST Implant us Branden Vora MD [facility] CARDIAC CATH ORDERAB LES Final Result [facility] [address] [place] [address] documented in this encounter Visit Diagnoses Not on filedocumented in this encounter Care Teams Case Mgr Relationship Specialty Start Date End Date Alexys Arguelles MD [facility] [address] [place] [phone] PCP - General Family Medicine 05/07/14 documented as of this encounter
--- OUTSIDE RECORDS SUMMARY | 2025-04-02 07:12 | XMS_ITS | Patient Health Record ---
Author Organization [facility] Address [address] [place] [id number] Care Team Providers Care M1 Armor Crewman Name Role Phone Jose Murphy Primary Care Provider JOSE MURPHY Unavailable Unavailable Allergies Allergen (clinical [...] Interpretation:281 Performing Lab: Notes/Report: Test performed by [facility] , [address], [place] [address] Zaid Olvera MD, Irrigation Teacher CLIA: [id number] Vitamin B12 669 233-0541 pg/mL P-Comprehensive Metabolic Pa francia (CMP) Reviewed date:06/12/2024 09:28:26 AM Interpretation:gluc 101, Cr 1.13, gfr 57 Performing Lab: Notes/Report: Test performed by [facility] [address] [place] [address] , [address], [place] [address] Zaid Olvera MD, Irrigation Teacher CLIA: [id number] Sodium 141 135-145 mmol/L Potassium 4.2 3.5-5.3 [...] Normal Performing Lab: Notes/Report: Test performed by [facility] [address] [place] [address] , [address], [place] [address] Zaid Olvera MD, Irrigation Teacher CLIA: [id number] Cholesterol 159 <200 mg/dL Triglycerides 126 <150 [...] Interpretation:32.9 Performing Lab: Notes/Report: Test performed by [facility], [address] , [facility], [place] [address] Zaid Olvera MD, Irrigation Teacher CLIA: [id number] Vitamin D 25-Hydroxy 32.9 30.0-100.0 ng/mL Interpretation [...] Interpretation:363 Performing Lab: Notes/Report: Test performed by [facility] [address] [place] [address] , [address], [place] [address] Zaid Olvera MD, Irrigation Teacher CLIA: [id number] Vitamin B12 992 922-9168 pg/mL P-Basic Metabolic Panel (BMP ) Reviewed date:12/15/2024 11:04:08 AM Interpretation:gluc 113 Performing Lab: Notes/Report: Test performed by [facility] [address] [place] [address] , [place] [address] Zaid Olvera MD, Irrigation Teacher CLIA: [id number] Sodium 143 135-145 mmol/L Potassium 4.0 3.5-5.3 mmol/L Chloride 104 97-108 mmol/L CO2 26 20-32 mmol/L Glucose 113 65-99 mg/dL BUN 10 6-20 mg/dL Creatinine 0.94 0.50-1.00 mg/dL Calcium 9.1 8.6-10.4 mg/dL eGFR by Creatinine 71 >59 mL/min/1.73m2 P-Vitamin D 25-Hydroxy Reviewed date:12/15/2024 11:04:08 AM Interpretation:34.5 Performing Lab: Notes/Report: Test performed by [facility] [address] [place] [address] [address], [place] [address] Zaid Olvera MD, Irrigation Teacher CLIA: [id number] Vitamin D 25-Hydroxy 34.5 30.0-100.0 ng/mL Interpretation [...] Factor Blocking Antibody Negative Negative Performed By: [facility] [address] [place] [address] Irrigation Teacher: Jamar Ortiz MD, PhD CLIA Number: [id number] Mammogram Reviewed date:01/12/2025 12:21:19 PM Interpretation:Negative Performing Lab: Notes/Report: Negative result Negative Medications Medication SIG (Take, Route, Frequency, Duration) [...] orally 2 ti mes a day Active ARIPiprazole 5 MG 1 tab(s) orally once a day; Duration: 90 days Active Furosemide 40 MG 1 tab(s) orally once a day Active Losartan Potassium 100 MG 1 tab(s) orall y once a day Active Escitalopram Oxalate 10 MG TAKE 1 [...] Status Risk Notes Problem Vitamin D deficiency (02758520) Vitamin D deficiency (E55.9) Active confirmed Problem Vitamin B12 deficiency (207241236) Vitamin B12 deficiency (E53.8) Active confirmed Problem Essential hypertension (49678470) Essential hypertension (I10) Active confirmed Problem Morbid obesity (384519318) Morbid obesity (E66.01) Active confirmed Problem Hypertriglyceridemia (350306852) Hypertriglyceridemia (E78.1) Active confirmed Problem Mixed anxiety and depressive disorder (455378908) Depression with anxiety (F41.8) Active confirmed Problem Sciatica (08002174) Lumbago with sciatica, right side (M54.41) Active confirmed Problem Mixed hyperlipidemia (400273001) Mixed hyperlipidemia (E78.2) Active confirmed Problem Chronic pain (13640285) Other chronic pain (G89.29) Active confirmed Problem Depressive disorder (41022623) Depressive disorder (F32.9) Active confirmed Problem Cardiomyopathy (10150934) Cardiomyopathy (I42.9) Active confirmed Problem Hypersomnia (60449892) Hypersomnia (G47.10) Active confirmed Problem Tobacco user (581350367) Cigarette nicotine dependence without complication (F17.210) Active confirmed Problem Automatic implantabl e cardiac defibrillator in situ (269284030) Presence of automatic implantable cardioverter-defibril lator (Z95.810) Active confirmed Problem Impaired fasting glycaemia (335464702) IFG (impaired fasting glucose) (R73.01) Active confirmed Problem Drug allergy (283831160) Multiple drug allergies (Z88.9) Active confirmed Problem Angina, class II (63903436) Angina, class II (I20.9) Active confirmed Problem Systolic dysfunction (912246731) Systolic dysfunction (I51.9) Active confirmed Vital Signs Heart Rate 64 /min 12/09/2024 Blood pressure diastolic 70 mm Hg 12/09/2024 Height 63 in 12/09/2024 Blood pressure systolic 112 mm Hg 12/09/2024 Weight 272.8 lbs 12/09/2024 BMI 48.32 kg/m2 12/09/2024 Encounters Encounter Location Date Provider Diagnosis [facility] [address] [facility] [address] [place], [place] [id number] 06/10/2024 [place] Essential hypertensi on I10 ; Mixed hyperlipidemia E78.2 ; Hypertriglyceridemia E78.1 ; IFG (impaired fasting glucose) R73.01 ; Vitamin D deficiency E55.9 ; Vitamin B12 deficiency E53.8 and Depression with anxiety F41.8 [facility] [address] [place], [place] [id number] 12/09/2024 Jose [place] Essential hypertensi on I10 ; Vitamin D deficiency E55.9 ; Vitamin B12 deficiency E53.8 ; IFG (impaired fasting glucose) R73.01 and Excessive wax in both ears H61.23 [facility] [address] [place], [place] [id number] 06/12/2024 Jose [place] [facility] [address] [place], [place] [id number] 12/15/2024 [place] [facility] [address] [facility] [address] [place], [place] [id number] 12/22/2024 Jose [place] Breast cancer screen ing Z12.31 and Encounter for screening for lung cancer Z12.2 Assessments Encounter Date Diagnosis (ICD Code) Assessment Notes Treatment Notes Treatment Clinical Notes Section Notes 06/10/2024 Essential hypertensi on (ICD-10 - I10) 06/10/2024 Mixed hyperlipidemia (ICD-10 - E78.2) 12/22/2024 Encounter for screen ing for lung cancer (ICD-10 - Z12.2) 12/22/2024 Breast cancer screen ing (ICD-10 - Z12.31) 12/09/2024 Vitamin D deficiency (ICD-10 - E55.9) [...] Treatment Pending Test Test Name Order Date CT Scan : Chest, low dose 12/22/2024 Cologuard 12/05/2021 P-Intrinsic Factor Blocking Antibody Next Appt Details Provider Name:Jose T Sushil ry, 06/11/2025 10:15:00 AM, [address], [address], [place], [id number], Insurance Providers Payer Name Payer Address Payer Phone Subscriber Number Group Number Insured Name Patient Relationship to Insured Coverage Start Date Coverage End Date [employer] [address] [place] [address] [phone] [id number] [id number] DON Self - patient is the [...] Hospitalization History Reason Date(Month/Year) ICD 05/12/[facility] [place] 05/07/2014 [facility] ER-reaction to Excedrin- [facility] ER 01/20 Rash- [facility] 01/09- Sleep Study
--- NOTE | 2025-04-02 07:30 | CT_ITS ---
FINAL REPORT TECHNIQUE: Axial images were obtained from the lung apex to the mid abdomen by computed tomography. This study was performed with techniques to keep radiation doses as low as reasonably achievable (ALARA). Individualized dose reduction techniques using automated exposure control or adjustment of mA and/or kV according to the patient's size were employed. CLINICAL HISTORY: lung cancer screening former smoker quit 3 years ago 1.5ppd x17 years FINDINGS: CHEST CT LOW DOSE CTDI vol (mGy): 2.90 DLP (mGy-cm): 96.38 There is no mediastinal mass or adenopathy. There are densely calcified subcarinal and hilar lymph nodes. The heart is normal in size. Streak artifact is seen from left upper anterior chest wall pacemaker. There is no pericardial or pleural effusion. Lung window images demonstrate a small calcified nodule at the right base. Limited images of the upper abdomen are unremarkable. IMPRESSION: Lung RADS category 1. Recommend 12 month follow-up low-dose chest CT. Reviewed, Interpreted and Dictated by Chente Denson MD Transcribed by Gabbie Vance Authenticated and [facility]
--- NOTE | 2025-04-02 08:53 | PC.NURSE ---
Pt completed PFT and 6 Minute Walk without incident. Walked on Room Air, Albuterol 0.083% given during PFT, per written protocol, Pt tolerated tx well.
== END 2025-04-02 23:59 | disposition home or self-care (01) ==
LOC: RAD 07:10
PROVIDERS: PCP Family Medicine; Visit Provider Internal Medicine Pulmonary Disease
DX: Z12.2 Encounter for screening for malignant neoplasm of respiratory organs (principal); Z87.891 Personal history of nicotine dependence; R91.1 Solitary pulmonary nodule; I89.8 Other specified noninfective disorders of lymphatic vessels and lymph nodes; Z95.0 Presence of cardiac pacemaker; R06.02 Shortness of breath
CPT/HCPCS: 71271; 94060; 94618; 94726; 94729